=== PATIENT | male | born 1980 | race Caucasian/White ===

== ENCOUNTER 2023-09-06 15:56 | Emergency (ER) | payer BC ==
--- OUTSIDE RECORDS SUMMARY | 2023-09-06 16:01 | XMS REPORT | Continuity of Care Document ---
:1980 Author Organization [facility] t Address [address] [facility] [address] [place] [address] Care Team Providers Name Role Phone Asked, No Pcp Primary Care Physician Unavailable Lane Evans Attending Clinician LANE EVANS Attending Clinician Unavailable Jacky To Attending Clinician JACKY TO Attending Clinician Unavailable MD JULIO RODRIGUEZ Attending Clinician Unavailable JULIO RODRIGUEZ Attending Clinician Unavailable Hakeem Erickson Attending Clinician MD JULIO RODRIGUEZ Admitting Clinician Unavailable Problems Condition Condition Condition Status Onset Resolution Last Treating Co mments Source Name Details Category Date Date Treatment Clinician Date CP CP Active Diagnosis Active 2022-07-08 Memoria 07-07 16:35:[address] [place] [address] 00:00: Wesly Bonilla 00 RIB RIB Diagnosis Active 2021-01-31 Mem oria PAIN/DIFFI PAIN/DIFFI 01-31 18:00:00 l CULTY CULTY 00:00: Chad BREATHING BREATHING 00 Active 01/31/2021 [facility] CHEST PAIN CHEST Diagnosis Active 2019-02-07 Memoria PAIN 02-07 12:56:00 l Active 00:00: Chad 02/07/2019 [facility] History of Past Illness Condition Condition Condition Status Onset Resolution Last Treating Co mments Source Name Details Category Date Date Treatment Clinician Date Contusion Contusion Problem 2021-02-02 2021-02-02 Memoria of of 01-31 22:56:09 22:56:09 l unspecifie unspecifie 17:00: He rmann d front d front 00 wall of wall of thorax, thorax, initial initial encounter encounter 01/31/2021 02/02/2021 [facility] Umbilical Problem 2021-02-02 2021-02-02 Memoria hernia Umbilical 01-31 22:56:09 22:56:09 l without hernia 17:00: Chad obstructio without 00 n or obstructio gangrene n or gangrene 01/31/2021 02/02/2021 [facility] Fatty Fatty Problem 2021-02-02 2021-02-02 M emoria (change (change 01-31 22:56:09 22:56:09 l of) liver, of) liver, 17:00: He rmann not not 00 elsewhere elsewhere classified classified 01/31/2021 [facility] Other Other Problem 2021-02-02 2021-02-02 M emoria chest pain chest pain 01-31 22:56:09 22:56:09 l 01/31/2021 17:00: Wesly shukla 02/02/2021 00 [facility] Palpitatio Palpitati Problem 2019-02-09 2019-02-09 Memoria ns ons 02-07 21:57:54 21:57:54 l 02/07/2019 05:00: Wesly shukla 02/09/2019 00 [facility] Dizziness Dizziness Problem 2019-02-09 2019-02-09 Memoria and and 02-07 21:57:54 21:57:54 l giddiness giddiness 05:00: Virginia collins 02/07/2019 00 02/09/2019 [facility] Allergies, Adverse Reactions, Alerts Allergy Allergy Status Severity Reaction(s) Onset Inactive Treating Comm ents Source Name Type Date Date Clinician José Miguel Stock Active Hives [facility] to [facility] adverse 00:00: Hospita reaction 00 l s to drug codeine codeine Active [facility]oria l [place] Social History Social Habit Start Date Stop Date Quantity Comments Source History SDOH [facility] Alcohol Frequency Hospita l History SDOH [facility] Alcohol Std Drinks Hospit al History SDOH [facility] B[facility] Sexual orientation [facility] Social History 2022-07-08 2022-07-[address] [facility] ermann 00:04:28 00:04:28 Tobacco use and 2020-04-26 2020-04-26 Smokeless tobacco [facility] exposure 00:00:00 00:00:00 non-user Hospital Alcohol intake 2020-04-26 2020-04-26 Current drinker of [facility] 00:00:00 00:00:00 alcohol (finding) Hospita l History of Social 2020-04-26 2020-04-[address] function 00:00:00 00:00:00 Hospital Alcohol Comment 2020-04-26 2020-04-[address] 00:00:00 00:00:00 Hospital Sex Assigned At [birth year] [facility] 00:00:00 00:00:00 Hospital Smoking Status Start Date Stop Date Source Never smoked tobacco [facility] Medications Ordered Filled Start Stop Current Ordering Indication Dosage Frequency Signature Comments Components Source Medication Medication Date Date Medication? Clinician (SIG) Name Name hydrOXYzine Yes 25 mg = 1 M emoria hydrochlori 8-29 tab, PO, l de 25 mg 02:13: QID, PRN Anupama nn oral tablet 00 Anxiety, X 5 day, # 20 tab, 0 Refill(s), Pharmacy: [facility][id number], 187.96, cm, 07/07/22 18:33:00 CDT, Height, 100, kg, 07/07/22 18:33:00 CDT, Weight Ativan No Notes: Memoria 8-29 (Same as: l 01:43: Ativan) potassium No /= 14 Memoria chloride 8-29 Pakistani, l 00:51: may dissolve each 20 mEq tablet in 4 oz of water. Allow about 2 minutes for the tablets to disintegra te. Stir before giving to prepare slurry and administer . Please exclude patient's with feeding tube less than 14 Pakistani (Darnell J-tube, etc) and pediatric and patients. morphine 2021-0 No 4 mg, Memoria Sulfate 07-07 Route: l 23:27: IVP, ONCE, Dosing Weight 92.818, kg, Priority: STAT, Start date: 07/07/22 18:27:00 CDT, Stop date: 07/07/22 18:27:00 CDT Zofran 0 No 4 mg, Memoria 07-07 Route: l 23:27: IVP, Drug form: INJ, ONCE, Dosing Weight 92.818, kg, Priority: STAT, Start date: 07/07/22 18:27:00 CDT, Stop date: 07/07/22 18:27:00 CDT Famotidine Yes 20 mg = 1 Me moria 20 MG Oral 3-25 tab, PO, l Tablet 00:51: BID, # 28 Wesly n 00 tab, 0 Refill(s), Pharmacy: [facility] #[id number], 190.5, cm, 01/31/21 16:32:00 CDT, Height, 92.818, kg, 01/31/21 16:32:00 CDT, Weight ibuprofen 0 Yes 600 mg = 1 Me moria 600 mg oral 3-25 tab, PO, l tablet 00:51: Q6H, PRN 00 Pain or Fever, Take with food, X 5 day, # 20 tab, 0 Refill(s), Pharmacy: [facility] #[id number], 190.5, cm, 01/31/21 16:32:00 CDT, Height, 92.818, kg, 01/31/21 16:32:00 CDT, Weight Omnipaque 0 No Notes: Memori a 350 3-24 (Same l 22:26: as:Omnipaq ue 350). WASTE: F/P - Black; E - Municipal Trash Bin No known No No known Metho di medications 6-[address] 15:37: s Hospita 04 l No known 2019- No No known Metho di medications 6-[address] 15:37: s Hospita 04 l Sodium 2018- No 1,000 mL, Memori a Chloride 3-31 Infuse l 0.9% 18:08: Over: 1 Chad (Bolus) IV 00 hr, Route: IV, ONCE, Priority: STAT, Dosing Weight 100.909 kg, Start date: 02/07/19 13:08:00 CDT, Stop date: 02/07/19 13:08:00 CDT Vital Signs Vital Name Observation Time Observation Value Comments Source Respitory Rate 2022-07-08 02:20:00 Memori al Chad Systolic (mm Hg) 2022-07-08 02:20:00 Jose rial [place] Diastolic (mm Hg) 2022-07-08 02:20:00 Mem orial Chad Respitory Rate 2022-07-08 01:57:00 Memori al [place] Systolic (mm Hg) 2022-07-08 01:57:00 Jose rial Chad Diastolic (mm Hg) 2022-07-08 01:57:00 Mem orial Chad Respitory Rate 2022-07-08 01:36:00 Memori al Chad Systolic (mm Hg) 2022-07-08 01:36:00 Jose rial Chad Diastolic (mm Hg) 2022-07-08 01:36:00 Mem orial Chad Height 2022-07-07 23:33:00 187.96 cm [facility] Chad BMI Calculated 2022-07-07 23:33:00 Memori al Chad Weight 2022-07-07 23:33:00 [facility] Chad Heart Rate 2022-07-07 23:33:00 [facility] Temperature Oral (F) 2022-07-07 23:33:00 98.2 F [facility] Temperature Oral (F) 2021-02-01 01:27:00 98.9 F [facility] Heart Rate 2021-02-01 01:27:00 [facility] Respitory Rate 2021-02-01 01:27:00 Memori al [place] Systolic (mm Hg) 2021-02-01 01:27:00 Jose rial [place] Diastolic (mm Hg) 2021-02-01 01:27:00 Mem orial [place] Height 2021-01-31 21:32:00 190.5 cm [facility] Chad BMI Calculated 2021-01-31 21:32:00 Memori al [place] Weight 2021-01-31 21:32:00 [facility] Systolic (mm Hg) 2021-01-31 21:32:00 Jose rial Chad Diastolic (mm Hg) 2021-01-31 21:32:00 Mem orial [place] Heart Rate 2021-01-31 21:32:00 [facility] Respitory Rate 2021-01-31 21:32:00 Memori al [place] Temperature Oral (F) 2021-01-31 21:32:00 99.0 F [facility] Temperature Oral (F) 2019-02-07 20:00:00 98.1 F [facility] Systolic (mm Hg) 2019-02-07 20:00:00 Jose rial [place] Diastolic (mm Hg) 2019-02-07 20:00:00 Mem orial Chad Systolic (mm Hg) 2019-02-07 19:30:00 Jose rial Chad Diastolic (mm Hg) 2019-02-07 19:30:00 Mem orial Chad Systolic (mm Hg) 2019-02-07 18:22:00 Jose rial Chad Diastolic (mm Hg) 2019-02-07 18:22:00 Mem orial Chad Height 2019-02-07 17:35:00 193.04 cm [facility] Chad BMI Calculated 2019-02-07 17:35:00 Memori al [place] Respitory Rate 2019-02-07 17:35:00 Memori al [place] Heart Rate 2019-02-07 17:35:00 [facility] Temperature Oral (F) 2019-02-07 17:35:00 98.8 F [facility] Weight 2019-02-07 17:35:00 [facility] Chad Procedures This patient has no known procedures. Plan of Care Planned Activity Planned Date Details Comments Source Future Scheduled 2023-09-03 [facility]INE [facility] 19:16:59 (#1) [code = COVID-19 VACCINE (#1)] Future Scheduled 2023-09-03 INFLUENZA VACCINE [facility] Test 19:16:59 (#1) [code = INFLUENZA VACCINE (#1)] Future Scheduled 2021-09-19 [facility] ([facility] [code = COVID-19 VACCINE (1)] Future Scheduled 2021-09-19 [facility] 07:44:39 screening (procedure) [code = 866268704] Future Scheduled 2021-09-19 [facility]ZA [facility]ACCINE [facility] 07:44:39 [code = INFLUENZA VACCINE] Future Scheduled 2021-09-19 COVID-[address] [facility] Test 07:44:39 (1) [code = COVID-19 VACCINE (1)] Future Scheduled 2021-09-19 [facility] Test 07:44:39 screening (procedure) [code = 090011480] Future Scheduled 2021-09-19 [facility]ENZA [facility]ACCINE [facility] Test 07:44:39 [code = INFLUENZA VACCINE] Encounters Start End Encounter Admission Attending Care Care Encounter Source Date/Time Date/Time Type Type Clinicians Facility Department ID 2022-07-07 2022-07-08 Emergency [facility] [id number] Memoria 23:22:21 02:30:00 bina Bonilla [address] [place] [address] 2022-07-07 2022-07-07 Outpatient MARLEN Evans [facility] [id number] 18:22:21 21:30:00 Abdiwahab 02 Fatima 2022-07-07 2022-07-07 [address] [facility] 18:22:00 21:30:00 ABDIWAHAB 2021-01-31 2021-02-01 Emergency [facility] [id number] Memoria 21:29:54 01:30:00 bina Bonilla [address] [place] [address] 2021-01-31 2021-01-31 Outpatient YESSENIA To 9 [id number] 16:29:54 20:30:00 Jacky Beard 2021-01-31 2021-01-31 Emergency E JIMENA TO KM [id number] Memoria 16:29:00 20:30:00 [facility] 2020-04-26 2020-04-26 Emergency [facility] [id number] [address] [place] 00:00:00 00:00:00 JULIO Hammond0 [facility] 2019-02-07 2019-02-07 Emergency nullFlavo [facility] [id number] Memoria 17:30:00 20:22:00 r Chad 00 l [facility] 2019-02-07 2019-02-07 Outpatient Hakeem Erickson [facility] [id number] 12:30:00 15:22:00 Jax Will 00 Results Test Description Test Time Test Comments Results Result Comments Source CARDIAC ENZYMES 2022-07-08 00:32:00 Test Item Value Reference Range Interpretation Comme nts HS Troponin I 1 Hr (test code = HS Troponin I 1 Hr) no gt [facility] [id number] 00:32:00 Test Item Value Reference Range Interpretation Comments HS Troponin I 0 to 1 Hour Delta (test no gt code = HS Troponin I 0 to 1 Hour Delta) [facility] [id number] 00:32:00 Test Item Value Reference Range Interpretation Comments Total CK (test code = Total CK) 133 12-191 [facility] [id number] 00:32:00 Test Item Value Reference Range Interpretation Comments CK MB (test code = CK MB) <1 ng/mL 0.5-3.6 [facility] [id number] 00:32:00 Test Item Value Reference Range Interpretation Comments CK MB Index (test code See Note 2(07/07/22 <=2.5 = CK MB Index) 7:32 PM) [facility] MarcosTtkhitnVQCQSVFGON0144-51-03 23:29:00 Test Item Value Reference Range Interpretation Comments Lymphocytes # (test code = Lymphocytes 2.2 1.0-5.5 #) [facility]oayoxtOZLKSGULHF9882-74-61 23:29:00 Test Item Value Reference Range Interpretation Comments Monocytes # (test code = Monocytes #) 0.9 <=0.8 [facility] MarcosRpnurbfTCSJLBXWVI9247-89-90 23:29:00 Test Item Value Reference Range Interpretation Comments Eosinophils # (test code = Eosinophils 0.1 <=0.5 #) [facility] MarcosWvjjwboNEJNVBMUHU6450-49-00 23:29:00 Test Item Value Reference Range Interpretation Comments Basophils # (test code = Basophils #) 0.1 <=0.2 [facility] DigitalB[facility] [id number] 23:29:00 Test Item Value Reference Range Interpretation Comments HS Troponin I Baseline (test code = HS no gt Troponin I Baseline) [facility]cos[facility] DigitalCHEM [id number] 23:29:00 Test Item Value Reference Range Interpretation Comments Glucose Lvl (test code = Glucose Lvl) 111 70-99 [place] 269822-08-28 23:29:00 Test Item Value Reference Range Interpretation Comments BUN (test code = BUN) 14 7-22 [place] 269822-08-28 23:29:00 Test Item Value Reference Range Interpretation Comments Creatinine Lvl (test code = Creatinine 0.93 0.50-1.40 Lvl) [place] 269822-08-28 23:29:00 Test Item Value Reference Range Interpretation Comments Sodium Lvl (test code = Sodium Lvl) 137 135-145 [place] 269822-08-28 23:29:00 Test Item Value Reference Range Interpretation Comments Potassium Lvl (test code = Potassium 3.3 3.5-5.1 Lvl) [place] 269822-08-28 23:29:00 Test Item Value Reference Range Interpretation Comments Chloride Lvl (test code = Chloride Lvl) 105 95-109 [place] 269822-08-28 23:29:00 Test Item Value Reference Range Interpretation Comments CO2 (test code = CO2) 23 24-32 [place] 269822-08-28 23:29:00 Test Item Value Reference Range Interpretation Comments Calcium Lvl (test code = Calcium Lvl) 9.0 8.5-10.5 [facility]2022-08-28 23:29:00 Test Item Value Reference Range Interpretation Comments Total Protein (test code = Total 7.7 6.4-8.4 Protein) [place] 269822-08-28 23:29:00 Test Item Value Reference Range Interpretation Comments Albumin Lvl (test code = Albumin Lvl) 4.1 3.5-5.0 [place] 269822-08-28 23:29:00 Test Item Value Reference Range Interpretation Comments ALT (test code = ALT) 48 <=65 [place] 269822-08-28 23:29:00 Test Item Value Reference Range Interpretation Comments AST (test code = AST) 18 <=37 [place] 269822-08-28 23:29:00 Test Item Value Reference Range Interpretation Comments Alk Phos (test code = Alk Phos) 72 39-136 [place] 269822-08-28 23:29:00 Test Item Value Reference Range Interpretation Comments Bili Total (test code = Bili Total) 0.5 0.2-1.3 [place] 269822-08-28 23:29:00 Test Item Value Reference Range Interpretation Comments AGAP (test code = AGAP) 12.3 10.0-20.0 [facility]2022-08-28 23:29:00 Test Item Value Reference Range Interpretation Comments B/C Ratio (test code = B/C Ratio) 15 1 6-25 [place] 269822-08-28 23:29:00 Test Item Value Reference Range Interpretation Comments Globulin (test code = Globulin) 3.6 2.7-4.2 [place] 269822-08-28 23:29:00 Test Item Value Reference Range Interpretation Comments A/G Ratio (test code = A/G Ratio) 1.1 1 0.7-1.6 [place] 269822-08-28 23:29:00 Test Item Value Reference Range Interpretation Comments eGFR (test code = eGFR) 106 [place] 325932-08-28 23:29:00 Test Item Value Reference Range Interpretation Comments WBC (test code = WBC) 6.9 3.7-10.4 [place] 325932-08-28 23:29:00 Test Item Value Reference Range Interpretation Comments RBC (test code = RBC) 4.33 4.70-6.10 [place] 325932-08-28 23:29:00 Test Item Value Reference Range Interpretation Comments Hgb (test code = Hgb) 14.4 14.0-18.0 [place] 325932-08-28 23:29:00 Test Item Value Reference Range Interpretation Comments Hct (test code = Hct) 41.2 42.0-54.0 [place] 227[address]-08-28 23:29:00 Test Item Value Reference Range Interpretation Comments MCV (test code = MCV) 95.2 80.0-94.0 [place] 325932-08-28 23:29:00 Test Item Value Reference Range Interpretation Comments MCH (test code = MCH) 33.1 pg 27.0-31.0 [place] 325932-08-28 23:29:00 Test Item Value Reference Range Interpretation Comments MCHC (test code = MCHC) 34.8 32.0-36.0 [facility]ExiyhfiORZRYTANQF6522-39-39 23:29:00 Test Item Value Reference Range Interpretation Comments RDW (test code = RDW) 12.7 11.5-14.5 [facility] CenterKgatenpVVDSCUPNOZ5317-23-65 23:29:00 Test Item Value Reference Range Interpretation Comments Platelet (test code = Platelet) 243 133-450 [facility] CenterJdfhzaaWPARREFIMR7617-29-63 23:29:00 Test Item Value Reference Range Interpretation Comments MPV (test code = MPV) 8.7 7.4-10.4 [facility] CenterHnvcjmqKYDDJGBSZR7305-49-92 23:29:00 Test Item Value Reference Range Interpretation Comments PT (test code = PT) 12.5 s 12.0-14.7 [facility] CenterBxdokwvYQIBFQVPOC0398-46-35 23:29:00 Test Item Value Reference Range Interpretation Comments INR (test code = INR) 0.94 1 0.85-1.17 [facility] CenterOqtywdrHHYEEIHRZO9087-20-94 23:29:00 Test Item Value Reference Range Interpretation Comments D-Dimer (test code = D-Dimer) no gt [facility] CenterKfzcxqiWNZHDBQDYZ2320-95-03 23:29:00 Test Item Value Reference Range Interpretation Comments Segs (test code = Segs) 53.3 45.0-75.0 [facility] CenterFrabblnPSRDHFCYXL2745-25-49 23:29:00 Test Item Value Reference Range Interpretation Comments Lymphocytes (test code = Lymphocytes) 32.0 20.0-40.0 [facility] CenterMuynonhNFQTOVOOUE4993-67-94 23:29:00 Test Item Value Reference Range Interpretation Comments Monocytes (test code = Monocytes) 12.8 2.0-12.0 [facility] CenterWtsoldjMDJOYUWBEN7141-26-57 23:29:00 Test Item Value Reference Range Interpretation Comments Eosinophils (test code = Eosinophils) 1.1 <=4.0 [facility] CenterWtvluyqQYERVZTKGZ7711-53-46 23:29:00 Test Item Value Reference Range Interpretation Comments Basophils (test code = Basophils) 0.8 <=1.0 [facility] CenterLvkyeqbFKBZDHQZJB6186-12-60 23:29:00 Test Item Value Reference Range Interpretation Comments Neutrophils # (test code = Neutrophils 3.7 1.5-8.1 #) [place] 325931-03-24 21:43:00 Test Item Value Reference Range Interpretation Comments MCHC (test code = MCHC) 34.5 32.0-36.0 [place] 325931-03-24 21:43:00 Test Item Value Reference Range Interpretation Comments RDW (test code = RDW) 12.6 11.5-14.5 [place] 325931-03-24 21:43:00 Test Item Value Reference Range Interpretation Comments Platelet (test code = Platelet) 267 133-450 [place] 325931-03-24 21:43:00 Test Item Value Reference Range Interpretation Comments MPV (test code = MPV) 8.7 7.4-10.4 [place] 325931-03-24 21:43:00 Test Item Value Reference Range Interpretation Comments PT (test code = PT) 12.6 s 12.0-14.7 [place] 325931-03-24 21:43:00 Test Item Value Reference Range Interpretation Comments INR (test code = INR) 0.95 1 0.85-1.17 [place] 325931-03-24 21:43:00 Test Item Value Reference Range Interpretation Comments PTT (test code = PTT) 25.6 s 22.9-35.8 [place] 325931-03-24 21:43:00 Test Item Value Reference Range Interpretation Comments Segs (test code = Segs) 57.8 45.0-75.0 [place] 325931-03-24 21:43:00 Test Item Value Reference Range Interpretation Comments Lymphocytes (test code = Lymphocytes) 29.2 20.0-40.0 [place] 325931-03-24 21:43:00 Test Item Value Reference Range Interpretation Comments Monocytes (test code = Monocytes) 9.7 2.0-12.0 [place] [address]-03-24 21:43:00 Test Item Value Reference Range Interpretation Comments Eosinophils (test code = Eosinophils) 2.2 <=4.0 [place] [address]-03-24 21:43:00 Test Item Value Reference Range Interpretation Comments Basophils (test code = Basophils) 1.1 <=1.0 [place] 325931-03-24 21:43:00 Test Item Value Reference Range Interpretation Comments Neutrophils # (test code = Neutrophils 4.6 1.5-8.1 #) [place] 325931-03-24 21:43:00 Test Item Value Reference Range Interpretation Comments Lymphocytes # (test code = Lymphocytes 2.3 1.0-5.5 #) [place] 325931-03-24 21:43:00 Test Item Value Reference Range Interpretation Comments Monocytes # (test code = Monocytes #) 0.8 <=0.8 [place] [address]-03-24 21:43:00 Test Item Value Reference Range Interpretation Comments Eosinophils # (test code = Eosinophils 0.2 <=0.5 #) [place] 325931-03-24 21:43:00 Test Item Value Reference Range Interpretation Comments Basophils # (test code = Basophils #) 0.1 <=0.2 [place] 269821-03-24 21:43:00 Test Item Value Reference Range Interpretation Comments Glucose Lvl (test code = Glucose Lvl) 131 70-99 [place] 269821-03-24 21:43:00 Test Item Value Reference Range Interpretation Comments BUN (test code = BUN) 12 7-22 [place] 269821-03-24 21:43:00 Test Item Value Reference Range Interpretation Comments Creatinine Lvl (test code = Creatinine 0.92 0.50-1.40 Lvl) [place] 269821-03-24 21:43:00 Test Item Value Reference Range Interpretation Comments Sodium Lvl (test code = Sodium Lvl) 139 135-145 [place] 269821-03-24 21:43:00 Test Item Value Reference Range Interpretation Comments Potassium Lvl (test code = Potassium 3.6 3.5-5.1 Lvl) [place] 269821-03-24 21:43:00 Test Item Value Reference Range Interpretation Comments Chloride Lvl (test code = Chloride Lvl) 106 95-109 [place] 269821-03-24 21:43:00 Test Item Value Reference Range Interpretation Comments CO2 (test code = CO2) 26 24-32 [place] 269821-03-24 21:43:00 Test Item Value Reference Range Interpretation Comments Calcium Lvl (test code = Calcium Lvl) 9.7 8.5-10.5 [place] 269821-03-24 21:43:00 Test Item Value Reference Range Interpretation Comments Total Protein (test code = Total 8.3 6.4-8.4 Protein) [place] 269821-03-24 21:43:00 Test Item Value Reference Range Interpretation Comments Albumin Lvl (test code = Albumin Lvl) 4.1 3.5-5.0 [place] 269821-03-24 21:43:00 Test Item Value Reference Range Interpretation Comments ALT (test code = ALT) 38 <=65 [place] 269821-03-24 21:43:00 Test Item Value Reference Range Interpretation Comments AST (test code = AST) 28 <=37 [place] 269821-03-24 21:43:00 Test Item Value Reference Range Interpretation Comments Alk Phos (test code = Alk Phos) 113 39-136 [place] 269821-03-24 21:43:00 Test Item Value Reference Range Interpretation Comments Bili Total (test code = Bili Total) 1.2 0.2-1.3 [place] 269821-03-24 21:43:00 Test Item Value Reference Range Interpretation Comments AGAP (test code = AGAP) 10.6 10.0-20.0 [place] 269821-03-24 21:43:00 Test Item Value Reference Range Interpretation Comments B/C Ratio (test code = B/C Ratio) 13 1 6-25 [place] 269821-03-24 21:43:00 Test Item Value Reference Range Interpretation Comments Globulin (test code = Globulin) 4.2 2.7-4.2 [place] 269821-03-24 21:43:00 Test Item Value Reference Range Interpretation Comments A/G Ratio (test code = A/G Ratio) 1.0 1 0.7-1.6 [place] 269821-03-24 21:43:00 Test Item Value Reference Range Interpretation Comments eGFR (test code = eGFR) 105 [place] 325931-03-24 21:43:00 Test Item Value Reference Range Interpretation Comments WBC (test code = WBC) 8.0 3.7-10.4 [place] 325931-03-24 21:43:00 Test Item Value Reference Range Interpretation Comments RBC (test code = RBC) 4.85 4.70-6.10 [facility]fh[facility]unoHOYKSSJNVS5469-96-26 21:43:00 Test Item Value Reference Range Interpretation Comments Hgb (test code = Hgb) 15.9 14.0-18.0 [facility]ax[facility]SS[facility]QKXMULT8997-21-14 21:43:00 Test Item Value Reference Range Interpretation Comments Hct (test code = Hct) 46.1 42.0-54.0 [facility] HospitalKxoupzwSAQHKVNIHR6676-75-10 21:43:00 Test Item Value Reference Range Interpretation Comments MCV (test code = MCV) 95.1 80.0-94.0 [id number] 21:43:00 Test Item Value Reference Range Interpretation Comments MCH (test code = MCH) 32.8 pg 27.0-31.0 [facility] coronavirus 2 RNA [Presence] in Respiratory specimen by MAURISIO with probe [id number] 03:04:28 Test Item Value Reference Range Interpretation Comments SARS coronavirus 2 RNA [Presence] in Detected Not-Detected Respiratory specimen by MAURISIO with probe detection (test code = 75883-5) [id number] 18:17:00 Test Item Value Reference Range Interpretation Comments Troponin-I (test code = Troponin-I) no gt <=0.40 [facility] [id number] 18:17:00 Test Item Value Reference Range Interpretation Comments Total CK (test code = Total CK) 259 12-191 [facility] [id number] 18:17:00 Test Item Value Reference Range Interpretation Comments Magnesium Lvl (test code = Magnesium 1.8 1.8-2.4 Lvl) [facility] [id number] 18:17:00 Test Item Value Reference Range Interpretation Comments Calcium Lvl (test code = Calcium Lvl) 9.1 8.5-10.5 [facility] [id number] 18:17:00 Test Item Value Reference Range Interpretation Comments Albumin Lvl (test code = Albumin Lvl) 4.1 3.5-5.0 [facility] [id number] 18:17:00 Test Item Value Reference Range Interpretation Comments CO2 (test code = CO2) 23 32 [id number] 18:17:00 Test Item Value Reference Range Interpretation Comments BUN (test code = BUN) 7 7-22 [facility]2019-03-31 18:17:00 Test Item Value Reference Range Interpretation Comments Glucose Lvl (test code = Glucose Lvl) 92 70-99 [facility]2019-03-31 18:17:00 Test Item Value Reference Range Interpretation Comments eGFR (test code = eGFR) 101 [facility]2019-03-31 18:17:00 Test Item Value Reference Range Interpretation Comments Creatinine Lvl (test code = Creatinine 0.96 0.50-1.40 Lvl) [facility]2019-03-31 18:17:00 Test Item Value Reference Range Interpretation Comments ALT (test code = ALT) 39 <=65 [facility]2019-03-31 18:17:00 Test Item Value Reference Range Interpretation Comments AST (test code = AST) 17 <=37 [facility]2019-03-31 18:17:00 Test Item Value Reference Range Interpretation Comments Alk Phos (test code = Alk Phos) 83 39-136 [facility]2019-03-31 18:17:00 Test Item Value Reference Range Interpretation Comments Total Protein (test code = Total 8.0 6.4-8.4 Protein) [facility]2019-03-31 18:17:00 Test Item Value Reference Range Interpretation Comments Bili Total (test code = Bili Total) 0.5 0.2-1.3 [facility]2019-03-31 18:17:00 Test Item Value Reference Range Interpretation Comments Chloride Lvl (test code = Chloride Lvl) 108 95-109 [facility]2019-03-31 18:17:00 Test Item Value Reference Range Interpretation Comments Sodium Lvl (test code = Sodium Lvl) 141 135-145 [facility]2019-03-31 18:17:00 Test Item Value Reference Range Interpretation Comments Potassium Lvl (test code = Potassium 3.7 3.5-5.1 Lvl) [facility]2019-03-31 18:17:00 Test Item Value Reference Range Interpretation Comments AGAP (test code = AGAP) 13.7 10.0-20.0 [place] [id number] 18:17:00 Test Item Value Reference Range Interpretation Comments B/C Ratio (test code = B/C Ratio) 7 1 6-25 [facility]2019-03-31 18:17:00 Test Item Value Reference Range Interpretation Comments Globulin (test code = Globulin) 3.9 2.7-4.2 [facility]2019-03-31 18:17:00 Test Item Value Reference Range Interpretation Comments A/G Ratio (test code = A/G Ratio) 1.1 1 0.7-1.6 [id number] 18:17:00 Test Item Value Reference Range Interpretation Comments Hct (test code = Hct) 42.0 42.0-54.0 [facility] C[id number] 18:17:00 Test Item Value Reference Range Interpretation Comments WBC (test code = WBC) 5.0 3.7-10.4 [facility] [id number] 18:17:00 Test Item Value Reference Range Interpretation Comments RBC (test code = RBC) 4.46 4.70-6.10 [facility] Ce[id number] 18:17:00 Test Item Value Reference Range Interpretation Comments MCV (test code = MCV) 94.2 80.0-94.0 [facility] [id number] 18:17:00 Test Item Value Reference Range Interpretation Comments Hgb (test code = Hgb) 14.3 14.0-18.0 [facility] CenterQtwnxdtNOVAXMHCAO4021-05-13 18:17:00 Test Item Value Reference Range Interpretation Comments Platelet (test code = Platelet) 245 133-450 [facility] [id number] 18:17:00 Test Item Value Reference Range Interpretation Comments RDW (test code = RDW) 13.4 11.5-14.5 [facility] [id number] 18:17:00 Test Item Value Reference Range Interpretation Comments MCH (test code = MCH) 32.0 pg 27.0-31.0 [facility] C[id number] 18:17:00 Test Item Value Reference Range Interpretation Comments MCHC (test code = MCHC) 34.0 32.0-36.0 [facility] C[id number] 18:17:00 Test Item Value Reference Range Interpretation Comments MPV (test code = MPV) 9.5 7.4-10.4 [facility] [id number] 18:17:00 Test Item Value Reference Range Interpretation Comments Basophils # (test code = Basophils #) 0.1 <=0.2 [place] [id number] 18:17:00 Test Item Value Reference Range Interpretation Comments Eosinophils (test code = Eosinophils) 3.4 <=4.0 [facility] CenterRakbkmhZXRIPLPDCF4618-67-05 18:17:00 Test Item Value Reference Range Interpretation Comments Segs (test code = Segs) 45.4 45.0-75.0 [facility] CenterDirrkzbWJTEVAEMAG3720-26-06 18:17:00 Test Item Value Reference Range Interpretation Comments Monocytes (test code = Monocytes) 12.5 2.0-12.0 [facility] Cent[id number] 18:17:00 Test Item Value Reference Range Interpretation Comments Lymphocytes (test code = Lymphocytes) 37.7 20.0-40.0 [facility] [id number] 18:17:00 Test Item Value Reference Range Interpretation Comments Eosinophils # (test code = Eosinophils 0.2 <=0.5 #) [facility] CenterEfoqewpDHZTHVPTQV7105-04-96 18:17:00 Test Item Value Reference Range Interpretation Comments Neutrophils # (test code = Neutrophils 2.3 1.5-8.1 #) [facility] [id number] 18:17:00 Test Item Value Reference Range Interpretation Comments Monocytes # (test code = Monocytes #) 0.6 <=0.8 [place] [id number] 18:17:00 Test Item Value Reference Range Interpretation Comments Basophils (test code = Basophils) 1.0 <=1.0 [place] [id number] 18:17:00 Test Item Value Reference Range Interpretation Comments Lymphocytes # (test code = Lymphocytes 1.9 1.0-5.5 #) [facility]
--- NOTE | 2023-09-06 19:14 | EDPHYS ---
Physician Documentation [facility] Name: Derick Cherry Age: 43 yrs Sex: Male : 1980 Arrival Date: 09/06/2023 Time: 15:56 Bed IW10 Private MD: ED Physician David Greenwood HPI: 09/06 16:54 This 43 yrs old Male presents to ER via Ambulatory with complaints of Bloody ec2 Stools, Abdominal Pain - Low, Bladder Problem. 16:54 Patient arrives today due to concern for rectal bleeding. Patient reports that he has ec2 noted some blood in his stool. States that he has very irregular bowel movements and typically only goes twice a month. Patient reports no significant straining, does feel some abdominal discomfort occasionally. Patient reports no issues with p.o. intake, no nausea or vomiting. States that he had noted some blood in the stool and grew concerned as he is also having more frequent stools than typical for him. Patient reports no previous medical problems and no significant medication administration.. Historical: - Allergies: 16:42 No Known Allergies; hb - Home Meds: 16:42 None [Active]; hb - PMHx: 16:42 None; hb - PSHx: 16:42 None; hb - Immunization history:: Adult Immunizations up to date. - Social history:: Smoking status: Patient denies any tobacco usage or history of. ROS: 16:54 Constitutional: as per hpi ec2 Exam: 16:54 Constitutional: GEN: NAD Head: atraumatic Eyes: EOMI Ears: External ears are ec2 normal. CV: regular rate LUNGS: no respiratory distress ABD: non-distended, soft, nontender, no guarding, nonrigid : Blood present at the 6 o'clock position with no obvious hemorrhoid or fissure appreciated. Some skin breakdown also noted. SKIN: no evidence of rashes MSK: no evidence of trauma NEURO: moves all extremities equally Vital Signs: 16:37 BP 144 / 98; Pulse 92; Resp 16; Temp 98.3(TE); Pulse Ox 99% ; Weight 99.79 kg; Height 6 hb ft. 3 in. ; Pain 0/10; 16:37 Body Mass Index 27.50 (99.79 kg, 190.5 cm) hb 16:37 Pain Scale: Adult hb MDM: 16:16 Patient medically screened. ec2 16:54 ED course: Patient arrives today due to concern for rectal bleeding as well as ec2 increased stool. Examination remarkable for benign abdomen with reassuring vital signs. Will obtain lab work, CT abdomen pelvis and refurther assess the complaint. Currently considering diverticulosis, diverticulitis, lower suspicion for esophageal bleed given the patient's reassuring abdominal examination and lack of history for liver disease. . 19:10 Transition of care: After a detail discussion of the patient's case, care is ec2 transferred to Hilario Wan MD. 19:14 Data reviewed: vital signs. ED course: Patient eloped without discussion with me.. ec2 09/06 17:08 Order name: IV Saline Lock ec2 09/06 17:08 Order name: Labs collected and sent ec2 Administered Medications: No medications were administered Disposition Summary: 09/06/23 19:14 Eloped Notes: Disposition: after being seen by provider ec2 Reason: wait time ec2 Diagnosis - Bloody Diarrhea ec2 Signatures: Dispatcher [employer] Christina Acosta RN RN David Greenwood MD MD ec2 Corrections: (The following items were deleted from the chart) 19:13 19:13 Home ec2 ec2 19:13 19:13 Stable ec2 ec2 19:13 19:13 Bloody Stools ec2 ec2
--- NOTE | 2023-09-06 19:14 | ER ---
Nurse's Notes [facility] Name: Derick Cherry Age: 43 yrs Sex: Male : 1980 Arrival Date: 09/06/2023 Time: 15:56 Bed IW10 Private MD: Diagnosis: Bloody Diarrhea Presentation: 09/06 16:37 Chief complaint: Upper abdominal pain and blood in stool x 2 weeks. Vomit x 1 today. hb Coronavirus screen: At this time, the client does not indicate any symptoms associated with coronavirus-19. Ebola Screen: No symptoms or risks identified at this time. Initial Sepsis Screen: Does the patient meet any 2 criteria? HR > 90 bpm. No. Patient's initial sepsis screen is negative. Does the patient have a suspected source of infection? No. Patient's initial sepsis screen is negative. Risk Assessment: Do you want to hurt yourself or someone else? Patient reports no desire to harm self or others. Onset of symptoms was August 23, 2023. 16:37 Method Of Arrival: Ambulatory hb 16:37 Acuity: SHAN 3 hb Historical: - Allergies: 16:42 No Known Allergies; hb - Home Meds: 16:42 None [Active]; hb - PMHx: 16:42 None; hb - PSHx: 16:42 None; hb - Immunization history:: Adult Immunizations up to date. - Social history:: Smoking status: Patient denies any tobacco usage or history of. Vital Signs: 16:37 BP 144 / 98; Pulse 92; Resp 16; Temp 98.3(TE); Pulse Ox 99% ; Weight 99.79 kg; Height 6 hb ft. 3 in. ; Pain 0/10; 16:37 Body Mass Index 27.50 (99.79 kg, 190.5 cm) hb 16:37 Pain Scale: Adult hb ED Course: 16:00 Patient arrived in ED. mg5 16:16 David Greenwood MD is Attending Physician. ec2 16:42 Triage completed. hb 16:42 Arm band placed on. hb 19:05 Patient's name was called from ER lobby. No response. Unable to locate patient. Will cm10 disposition as left without being seen by a provider. Administered Medications: No medications were administered Outcome: 19:13 Discharge ordered by . ec2 19:25 Patient left the ED. cm10 Signatures: Christina Florian RN RN Lora Ball RN RN cm10 Maria Victoria Mcgee mg5 David Greenwood MD MD ec2
[2023-09-06 19:32] VITALS: BP 144/98; TEMP 98.3; O2SAT 99
== END 2023-09-06 19:25 | disposition left against medical advice (07) ==
LOC: ER 15:56
DX: K92.1 Melena (principal)
CPT/HCPCS: 99281

== ENCOUNTER 2023-09-08 08:15 | Emergency (ER) | payer BC ==
--- OUTSIDE RECORDS SUMMARY | 2023-09-08 08:20 | XMS REPORT | Continuity of Care Document ---
:1980 Author Organization [facility] t Address [address] [facility]. [address] [place] [address] Care Team Providers Name Role Phone Asked, [...] Diagnosis Active 2022-07-08 Memoria 07-07 16:35:00 l 2 Memorial 00:00: Wesly Bonilla 00 RIB RIB Diagnosis Active 2021-01-31 Mem oria PAIN/DIFFI PAIN/DIFFI 01-31 18:00:00 l CULTY CULTY 00:00: Chad BREATHING BREATHING 00 Active 01/31/2021 [facility] CHEST PAIN CHEST Diagnosis Active 2019-02-07 Memoria PAIN 02-07 12:56:00 l Active 00:00: Chad 02/07/[address] [facility] History of Past Illness Condition Condition Condition Status Onset Resolution Last Treating Co mments Source Name Details Category Date Date Treatment Clinician Date Fatty Fatty Problem 2021-02-02 2021-02-02 M emoria (change (change 01-31 22:56:09 22:56:09 l of) liver, of) liver, 17:00: He rmann not not 00 elsewhere elsewhere classified classified 02/02/2021 [facility] Other Other Problem 2021-02-02 2021-02-02 M emoria chest pain chest pain 01-31 22:56:09 22:56:09 l 17:00: Wesly n 1 00 02/02/2021 [facility] Contusion Contusion Problem 2021-02-02 2021-02-02 Memoria of of 01-31 22:56:09 22:56:09 l unspecifie unspecifie 17:00: He tonie d front d front 00 wall of wall of thorax, thorax, initial initial encounter encounter 01/31/2021 02/02/2021 [facility] Umbilical Problem 2021-02-02 2021-02-02 Memoria hernia Umbilical 01-31 22:56:09 22:56:09 l without hernia 17:00: Chad obstructio without 00 n or obstructio gangrene n or gangrene 01/31/2021 02/02/2021 [facility] Palpitatio Problem 2018-2019-02-09 2019-02-09 Memoria ns Palpitatio 02-07 21:57:54 21:57:54 l ns 05:00: Chad 02/07/2019 00 02/09/[address] [facility] Dizziness Dizziness Problem 2018-2019-02-09 2019-02-09 Memoria and and 02-07 21:57:54 21:57:54 l giddiness giddiness 05:00: Herm karina 02/07/2019 00 02/09/[address] [facility] Allergies, Adverse Reactions, Alerts Allergy Allergy Status Severity Reaction(s) Onset Inactive Treating Comm ents Source Name Type Date Date Clinician Codeine Propensi Active Hives 2020-0 Methodi ty to 6-[facility] adverse 00:00: Hospita reaction 00 l s to drug codeine codeine Active Sharmin mayi ColemanChad Social History Social Habit Start Date Stop Date Quantity Comments Source Sexual orientation [facility] SDOH [facility] Alcohol Frequency Hospita l History SDOH [facility] Alcohol Std Drinks Hospit al History SDOH [facility] Alcohol Binge Hospital Social History 2022-07-08 2022-07-08 [facility] amparo 00:04:28 00:04:28 Alcohol intake 2020-04-26 2020-04-26 Current drinker of [facility] 00:00:00 00:00:00 alcohol (finding) Hospita l History of Social 2020-04-26 2020-04-[address] function 00:00:00 00:00:00 Hospital Alcohol Comment 2020-04-26 2020-04-[address] 00:00:00 00:00:00 Hospital Tobacco use and 2020-04-26 2020-04-26 Smokeless tobacco [facility] exposure 00:00:00 00:00:00 non-user Hospital Sex Assigned At [birth year] [facility] 00:00:00 00:00:00 Hospital Smoking Status Start Date Stop Date Source Never smoked tobacco [facility] Medications Ordered Filled Start Stop Current Ordering Indication Dosage Frequency Signature Comments Components Source Medication Medication Date Date Medication? Clinician (SIG) Name Name hydrOXYzine Yes 25 mg = 1 M emoria hydrochlori 8-29 tab, PO, l de 25 mg 02:13: QID, PRN Anupama nn oral tablet 00 Anxiety, X 5 day, # 20 tab, 0 Refill(s), Pharmacy: [facility] #[id number], 187.96, cm, 07/07/22 18:33:00 CDT, Height, 100, kg, 07/07/22 18:33:00 CDT, Weight hydrOXYzine Yes 25 mg = 1 M emoria hydrochlori 8-29 tab, PO, l de 25 mg 02:13: QID, PRN Anupama nn oral tablet 00 Anxiety, X 5 day, # 20 tab, 0 Refill(s), Pharmacy: [facility]ORE #[id number], 187.96, cm, 07/07/22 18:33:00 CDT, Height, 100, kg, 07/07/22 18:33:00 CDT, Weight Ativan No Notes: Memoria 8-29 (Same as: l 01:43: Ativan) Ativan No Notes: Memoria 8-29 (Same as: l 01:43: Ativan) potassium No /= 14 Memoria chloride 8-29 [place], l 00:51: may dissolve each 20 mEq tablet in 4 oz of water. Allow about 2 minutes for the tablets to disintegra te. Stir before giving to prepare slurry and administer . Please exclude patient's with feeding tube less than 14 [place] (Dobhoff, J-tube, etc) and pediatric and patients. potassium 2021-0 No /= 14 Memoria chloride 8-29 [place], l 00:51: may dissolve each 20 mEq tablet in 4 oz of water. Allow about 2 minutes for the tablets to disintegra te. Stir before giving to prepare slurry and administer . Please exclude patient's with feeding tube less than 14 [place] (Dobhoff, J-tube, etc) and pediatric and patients. morphine 2021-0 No 4 mg, Memoria Sulfate 07-07 Route: l 23:27: IVP, ONCE, Dosing Weight 92.818, kg, Priority: STAT, Start date: 07/07/22 18:27:00 CDT, Stop date: 07/07/22 18:27:00 CDT Zofran 2021-0 No 4 mg, Memoria 07-07 Route: l 23:27: IVP, Drug form: INJ, ONCE, Dosing Weight 92.818, kg, Priority: STAT, Start date: 07/07/22 18:27:00 CDT, Stop date: 07/07/22 18:27:00 CDT morphine 2021-0 No 4 mg, Memoria Sulfate 07-07 Route: l 23:27: IVP, ONCE, Dosing Weight 92.818, kg, Priority: STAT, Start date: 07/07/22 18:27:00 CDT, Stop date: 07/07/22 18:27:00 CDT Zofran 2-0 No 4 mg, Memoria 07-07 Route: l 23:27: IVP, Drug [place] 00 form: INJ, ONCE, Dosing Weight 92.818, kg, Priority: STAT, Start date: 07/07/22 18:27:00 CDT, Stop date: 07/07/22 18:27:00 CDT Famotidine Yes 20 mg = 1 Me moria 20 MG Oral 3-25 tab, PO, l Tablet 00:51: BID, # 28 Wesly n 00 tab, 0 Refill(s), Pharmacy: [facility] #[id number], 190.5, cm, 01/31/21 16:32:00 CDT, Height, 92.818, kg, 01/31/21 16:32:00 CDT, Weight ibuprofen Yes 600 mg = 1 Me moria 600 mg oral 3-25 tab, PO, l tablet 00:51: Q6H, PRN Chad 00 Pain or Fever, Take with food, X 5 day, # 20 tab, 0 Refill(s), [id number], 190.5, cm, 01/31/21 16:32:00 CDT, Height, 92.818, kg, 01/31/21 16:32:00 CDT, Weight Famotidine Yes 20 mg = 1 Me moria 20 MG Oral 3-25 tab, PO, l Tablet 00:51: BID, # 28 Ewsly n 00 tab, 0 Refill(s), [id number], 190.5, cm, 01/31/21 16:32:00 CDT, Height, 92.818, kg, 01/31/21 16:32:00 CDT, Weight ibuprofen 0 Yes 600 mg = 1 Me moria 600 mg oral 3-25 tab, PO, l tablet 00:51: Q6H, PRN [place] 00 Pain or Fever, Take with food, X 5 day, # 20 tab, 0 Refill(s), [id number], 190.5, cm, 01/31/21 16:32:00 CDT, Height, 92.818, kg, 01/31/21 16:32:00 CDT, Weight Omnipaque 2021-0 No Notes: Memori a 350 3-24 (Same l 22:26: as:Omnipaq [place] 00 ue 350). WASTE: F/P - Black; E - Municipal Trash Bin Omnipaque No Notes: Memori a 350 3-24 (Same l 22:26: as:Omnipaq [place] 00 ue 350). WASTE: F/P - Black; E - Municipal Trash Bin No known 2019- No No known Metho di medications 6-[address] 15:37: s Hospita 04 l No known 2020-0 No No known Metho di medications 6-[address] 15:37: s Hospita 04 l Sodium 2019-0 No 1,000 mL, Memori a Chloride 3-31 Infuse l 0.9% 18:08: Over: 1 [place] (Bolus) IV 00 hr, Route: IV, ONCE, Priority: STAT, Dosing Weight 100.909 kg, Start date: 02/07/19 13:08:00 CDT, Stop date: 02/07/19 13:08:00 CDT Sodium 2019-0 No 1,000 mL, Memori a Chloride 3-31 Infuse l 0.9% 18:08: Over: 1 [place] (Bolus) IV 00 hr, Route: IV, ONCE, Priority: STAT, Dosing Weight 100.909 kg, Start date: 02/07/19 13:08:00 CDT, Stop date: 02/07/19 13:08:00 CDT Vital Signs Vital Name Observation Time Observation Value Comments Source Respitory Rate 2022-07-08 02:20:00 Memori al Chad Systolic (mm Hg) 2022-07-08 02:20:00 Jose rial [place] Diastolic (mm Hg) 2022-07-08 02:20:00 Mem orial [place] Respitory Rate 2022-07-08 01:57:00 Memori al Chad Systolic (mm Hg) 2022-07-08 01:57:00 Jose rial Chad Diastolic (mm Hg) 2022-07-08 01:57:00 Mem orial [place] Respitory Rate 2022-07-08 01:36:00 Memori al [place] Systolic (mm Hg) 2022-07-08 01:36:00 Jose rial [place] Diastolic (mm Hg) 2022-07-08 01:36:00 Mem orial [place] Height 2022-07-07 23:33:00 187.96 cm [facility] [place] BMI Calculated 2022-07-07 23:33:00 Memori al Chad Weight 2022-07-07 23:33:00 [facility] Chad Heart Rate 2022-07-07 23:33:00 [facility] Chad Temperature Oral (F) 2022-07-07 23:33:00 98.2 F [facility] [place] Temperature Oral (F) 2021-02-01 01:27:00 98.9 F [facility] [place] Heart Rate 2021-02-01 01:27:00 [facility] [place] Respitory Rate 2021-02-01 01:27:00 Memori al [place] Systolic (mm Hg) 2021-02-01 01:27:00 Jose rial [place] Diastolic (mm Hg) 2021-02-01 01:27:00 Mem orial Chad Height 2021-01-31 21:32:00 190.5 cm [facility] [place] BMI Calculated 2021-01-31 21:32:00 Memori al [place] Weight 2021-01-31 21:32:00 [facility] Chad Systolic (mm Hg) 2021-01-31 21:32:00 Jose rial [place] Diastolic (mm Hg) 2021-01-31 21:32:00 Mem orial Chad Heart Rate 2021-01-31 21:32:00 [facility] [place] Respitory Rate 2021-01-31 21:32:00 Memori al Chad Temperature Oral (F) 2021-01-31 21:32:00 99.0 F [facility] [place] Temperature Oral (F) 2019-02-07 20:00:00 98.1 F [facility] [place] Systolic (mm Hg) 2019-02-07 20:00:00 Jose rial Chad Diastolic (mm Hg) 2019-02-07 20:00:00 Mem orial Chad Systolic (mm Hg) 2019-02-07 19:30:00 Jose rial Chad Diastolic (mm Hg) 2019-02-07 19:30:00 Mem orial [place] Systolic (mm Hg) 2019-02-07 18:22:00 Jose rial [place] Diastolic (mm Hg) 2019-02-07 18:22:00 Mem orial [place] Height 2019-02-07 17:35:00 193.04 cm [facility] Chad BMI Calculated 2019-02-07 17:35:00 Memori al [place] Respitory Rate 2019-02-07 17:35:00 Memori al [place] Heart Rate 2019-02-07 17:35:00 [facility] [place] Temperature Oral (F) 2019-02-07 17:35:00 98.8 F [facility] [place] Weight 2019-02-07 17:35:00 [facility] Chad Procedures This patient has no known procedures. Plan of Care Planned Activity Planned Date Details Comments Source Future Scheduled 2023-09-03 COVID-19 VACCINE [facility] 19:16:59 (#1) [code = COVID-19 VACCINE (#1)] Future Scheduled 2023-09-03 INFLUENZA VACCINE [facility] Test 19:16:59 (#1) [code = INFLUENZA VACCINE (#1)] Future Scheduled 2023-09-03 COVID-19 VACCINE [facility] Test 19:16:59 (#1) [code = COVID-19 VACCINE (#1)] Future Scheduled 2023-09-03 INFLUENZA VACCINE [facility] Test 19:16:59 (#1) [code = INFLUENZA VACCINE (#1)] Future Scheduled 2021-09-19 COVID-19 VACCINE [facility] Test 07:44:39 (1) [code = COVID-19 VACCINE (1)] Future Scheduled 2021-09-19 [facility] Test 07:44:39 screening (procedure) [code = 391822196] Future Scheduled 2021-09-19 INFLUENZA VACCINE [facility] Test 07:44:39 [code = INFLUENZA VACCINE] Future Scheduled 2021-09-19 COVID-19 VACCINE [facility] Test 07:44:39 (1) [code = COVID-19 VACCINE (1)] Future Scheduled 2021-09-19 [facility] Test 07:44:39 screening (procedure) [code = 939046043] Future Scheduled 2021-09-19 INFLUENZA VACCINE [facility] Test 07:44:39 [code = INFLUENZA VACCINE] Encounters Start End Encounter Admission Attending Care Care Encounter Source Date/Time Date/Time Type Type Clinicians Facility Department ID 2022-07-07 2022-07-08 Emergency [facility] [id number] Memoria 23:22:21 02:30:00 r Chad 02 [facility] 2022-07-07 2022-07-08 Emergency [facility] [id number] Memoria 23:22:21 02:30:00 bina Bonilla 02 [facility] 2022-07-07 2022-07-07 Outpatient NathanMARLEN [email or web address] [id number] 18:22:21 21:30:00 Abdiwab 02 Fatima 2022-07-07 2022-07-07 Emergency E [address]AN [id number] [facility] 18:22[facility]00 [facility]30[facility] 2021-01-31 2021-02-01 Emergency [facility] [id number] Memoria 21:29:54 01:30:00 bina Bonilla [facility] 2021-01-31 2021-02-01 Emergency [facility] [id number] Memoria 21:29:54 01:30:00 bina Bonilla 01 [facility] 2021-01-31 2021-01-31 Outpatient Millie, Ivana 9 [id number] 375 16:29:54 20:30:00 Jacky Milo Chirag 2021-01-31 2021-01-31 Emergency E MILLIE, TAMELA KM [id number] Memoria 16:29:00 20:30:00 [facility] 2020-04-26 2020-04-26 Emergency DAIRY, [facility] [id number] [place] [address] 00:00:00 00:00:00 JULIO [address] 2019-02-07 2019-02-07 Emergency [facility] [id number] Memoria 17:30:00 20:22:00 bina Bonilla 00 [facility] 2019-02-07 2019-02-07 Emergency [facility] [id number] Memoria 17:30:00 20:22:00 bina Bonilla 00 [facility] 2019-02-07 2019-02-07 Outpatient Hakeem Erickson [facility] [id number] 12:30:00 15:22:00 Jax Solis 00 Results Test Description Test Time Test Comments Results Result Comments Source CARDIAC ENZYMES 2022-07-08 00:32:00 Test Item Value Reference Range Interpretation Comme nts HS Troponin I 1 Hr (test code = HS Troponin I 1 Hr) no gt [facility] HermannCARDIAC [id number] 00:32:00 Test Item Value Reference Range Interpretation Comments HS Troponin I 0 to 1 Hour Delta (test no gt code = HS Troponin I 0 to 1 Hour Delta) [facility] [id number] 00:32:00 Test Item Value Reference Range Interpretation Comments Total CK (test code = Total CK) 133 [facility] [id number] 00:32:00 Test Item Value Reference Range Interpretation Comments CK MB (test code = CK MB) <1 ng/mL 0.5-3.6 [facility] [id number] 00:32:00 Test Item Value Reference Range Interpretation Comments CK MB Index (test code See Note 2(07/07/22 <=2.5 = CK MB Index) 7:32 PM) [facility] [id number] 00:32:00 Test Item Value Reference Range Interpretation Comments HS Troponin I 1 Hr (test code = HS no gt Troponin I 1 Hr) [facility] [id number] 00:32:00 Test Item Value Reference Range Interpretation Comments HS Troponin I 0 to 1 Hour Delta (test no gt code = HS Troponin I 0 to 1 Hour Delta) [facility] [id number] 00:32:00 Test Item Value Reference Range Interpretation Comments Total CK (test code = Total CK) 133 [facility] [id number] 00:32:00 Test Item Value Reference Range Interpretation Comments CK MB (test code = CK MB) <1 ng/mL 0.5-3.6 [facility]annCARDIAC [id number] 00:32:00 Test Item Value Reference Range Interpretation Comments CK MB Index (test code See Note 2(07/07/22 <=2.5 = CK MB Index) 7:32 PM) [facility] HermannCARDIAC [id number] 23:29:00 Test Item Value Reference Range Interpretation Comments HS Troponin I Baseline (test code = HS no gt Troponin I Baseline) [place] [id number] 23:29:00 Test Item Value Reference Range Interpretation Comments Glucose Lvl (test code = Glucose Lvl) 111 70-99 [place] [id number] 23:29:00 Test Item Value Reference Range Interpretation Comments BUN (test code = BUN) 14 7-22 [place] [id number] 23:29:00 Test Item Value Reference Range Interpretation Comments Creatinine Lvl (test code = Creatinine 0.93 0.50-1.40 Lvl) [place] [id number] 23:29:00 Test Item Value Reference Range Interpretation Comments Sodium Lvl (test code = Sodium Lvl) 137 135-145 [place] [id number] 23:29:00 Test Item Value Reference Range Interpretation Comments Potassium Lvl (test code = Potassium 3.3 3.5-5.1 Lvl) [place] 940312-08-28 23:29:00 Test Item Value Reference Range Interpretation Comments Chloride Lvl (test code = Chloride Lvl) 105 95-109 [place] 940312-08-28 23:29:00 Test Item Value Reference Range Interpretation Comments CO2 (test code = CO2) 23 24-32 [place] 940312-08-28 23:29:00 Test Item Value Reference Range Interpretation Comments Calcium Lvl (test code = Calcium Lvl) 9.0 8.5-10.5 [place] 940312-08-28 23:29:00 Test Item Value Reference Range Interpretation Comments Total Protein (test code = Total 7.7 6.4-8.4 Protein) [place] 940312-08-28 23:29:00 Test Item Value Reference Range Interpretation Comments Albumin Lvl (test code = Albumin Lvl) 4.1 3.5-5.0 [place] 940312-08-28 23:29:00 Test Item Value Reference Range Interpretation Comments ALT (test code = ALT) 48 <=65 [place] 940312-08-28 23:29:00 Test Item Value Reference Range Interpretation Comments AST (test code = AST) 18 <=37 [place] 940312-08-28 23:29:00 Test Item Value Reference Range Interpretation Comments Alk Phos (test code = Alk Phos) 72 39-136 [facility]2022-08-28 23:29:00 Test Item Value Reference Range Interpretation Comments Bili Total (test code = Bili Total) 0.5 0.2-1.3 [facility]2022-08-28 23:29:00 Test Item Value Reference Range Interpretation Comments AGAP (test code = AGAP) 12.3 10.0-20.0 [facility]2022-08-28 23:29:00 Test Item Value Reference Range Interpretation Comments B/C Ratio (test code = B/C Ratio) 15 1 6-25 [place] 940312-08-28 23:29:00 Test Item Value Reference Range Interpretation Comments Globulin (test code = Globulin) 3.6 2.7-4.2 [facility]2022-08-28 23:29:00 Test Item Value Reference Range Interpretation Comments A/G Ratio (test code = A/G Ratio) 1.1 1 0.7-1.6 [place] 940312-08-28 23:29:00 Test Item Value Reference Range Interpretation Comments eGFR (test code = eGFR) 106 [id number] 23:29:00 Test Item Value Reference Range Interpretation Comments WBC (test code = WBC) 6.9 3.7-10.4 [facility] HospitalHfmbtnnTBYRSPBDUR2325-08-57 23:29:00 Test Item Value Reference Range Interpretation Comments RBC (test code = RBC) 4.33 4.70-6.10 [place] 059422-08-28 23:29:00 Test Item Value Reference Range Interpretation Comments Hgb (test code = Hgb) 14.4 14.0-18.0 [place] [id number] 23:29:00 Test Item Value Reference Range Interpretation Comments Hct (test code = Hct) 41.2 42.0-54.0 [place] [address]-08-28 23:29:00 Test Item Value Reference Range Interpretation Comments MCV (test code = MCV) 95.2 80.0-94.0 [place] [address]-08-28 23:29:00 Test Item Value Reference Range Interpretation Comments MCH (test code = MCH) 33.1 pg 27.0-31.0 [place] 98[address]-08-28 23:29:00 Test Item Value Reference Range Interpretation Comments MCHC (test code = MCHC) 34.8 32.0-36.0 [place] 059422-08-28 23:29:00 Test Item Value Reference Range Interpretation Comments RDW (test code = RDW) 12.7 11.5-14.5 [facility] [id number] 23:29:00 Test Item Value Reference Range Interpretation Comments Platelet (test code = Platelet) 243 133-450 [facility] HospitalJwujgoiJNROSJLPGF1431-10-86 23:29:00 Test Item Value Reference Range Interpretation Comments MPV (test code = MPV) 8.7 7.4-10.4 [place] 059422-08-28 23:29:00 Test Item Value Reference Range Interpretation Comments PT (test code = PT) 12.5 s 12.0-14.7 [facility] HospitalZfieexpYCFDQZTCLP5409-10-71 23:29:00 Test Item Value Reference Range Interpretation Comments INR (test code = INR) 0.94 1 0.85-1.17 [place] 059422-08-28 23:29:00 Test Item Value Reference Range Interpretation Comments D-Dimer (test code = D-Dimer) no gt [facility] Ho[id number] 23:29:00 Test Item Value Reference Range Interpretation Comments Segs (test code = Segs) 53.3 45.0-75.0 [facility] Ho[id number] 23:29:00 Test Item Value Reference Range Interpretation Comments Lymphocytes (test code = Lymphocytes) 32.0 20.0-40.0 [place] 059422-08-28 23:29:00 Test Item Value Reference Range Interpretation Comments Monocytes (test code = Monocytes) 12.8 2.0-12.0 [place] 059422-08-28 23:29:00 Test Item Value Reference Range Interpretation Comments Eosinophils (test code = Eosinophils) 1.1 <=4.0 [place] 059422-08-28 23:29:00 Test Item Value Reference Range Interpretation Comments Basophils (test code = Basophils) 0.8 <=1.0 [facility] Hospit[id number] 23:29:00 Test Item Value Reference Range Interpretation Comments Neutrophils # (test code = Neutrophils 3.7 1.5-8.1 #) [facility] CenterLtoheajJSUONOZQWM5282-08-31 23:29:00 Test Item Value Reference Range Interpretation Comments Lymphocytes # (test code = Lymphocytes 2.2 1.0-5.5 #) [facility]20[facility]37[facility]25 23:29:00 Test Item Value Reference Range Interpretation Comments Monocytes # (test code = Monocytes #) 0.9 <=0.8 [facility]PrfqpevXLHEUOUEUG4463-98-30 23:29:00 Test Item Value Reference Range Interpretation Comments Eosinophils # (test code = Eosinophils 0.1 <=0.5 #) [id number] 23:29:00 Test Item Value Reference Range Interpretation Comments Basophils # (test code = Basophils #) 0.1 <=0.[address] [facility] [address] [id number] 23:29:00 Test Item Value Reference Range Interpretation Comments HS Troponin I Baseline (test code = HS no gt Troponin I Baseline) [facility]2022-08-28 23:29:00 Test Item Value Reference Range Interpretation Comments Glucose Lvl (test code = Glucose Lvl) 111 70-99 [facility]2022-08-28 23:29:00 Test Item Value Reference Range Interpretation Comments BUN (test code = BUN) 14 7-22 [facility]2022-08-28 23:29:00 Test Item Value Reference Range Interpretation Comments Creatinine Lvl (test code = Creatinine 0.93 0.50-1.40 Lvl) [facility]2022-08-28 23:29:00 Test Item Value Reference Range Interpretation Comments Sodium Lvl (test code = Sodium Lvl) 137 135-145 [facility]2022-08-28 23:29:00 Test Item Value Reference Range Interpretation Comments Potassium Lvl (test code = Potassium 3.3 3.5-5.1 Lvl) [facility]2022-08-28 23:29:00 Test Item Value Reference Range Interpretation Comments Chloride Lvl (test code = Chloride Lvl) 105 95-109 [facility]2022-08-28 23:29:00 Test Item Value Reference Range Interpretation Comments CO2 (test code = CO2) 23 24-32 [facility]2022-08-28 23:29:00 Test Item Value Reference Range Interpretation Comments Calcium Lvl (test code = Calcium Lvl) 9.0 8.5-10.5 [place] 940312-08-28 23:29:00 Test Item Value Reference Range Interpretation Comments Total Protein (test code = Total 7.7 6.4-8.4 Protein) [place] 940312-08-28 23:29:00 Test Item Value Reference Range Interpretation Comments Albumin Lvl (test code = Albumin Lvl) 4.1 3.5-5.0 [place] 940312-08-28 23:29:00 Test Item Value Reference Range Interpretation Comments ALT (test code = ALT) 48 <=65 [place] 940312-08-28 23:29:00 Test Item Value Reference Range Interpretation Comments AST (test code = AST) 18 <=37 [place] 940312-08-28 23:29:00 Test Item Value Reference Range Interpretation Comments Alk Phos (test code = Alk Phos) 72 39-136 [place] 940312-08-28 23:29:00 Test Item Value Reference Range Interpretation Comments Bili Total (test code = Bili Total) 0.5 0.2-1.3 [place] 940312-08-28 23:29:00 Test Item Value Reference Range Interpretation Comments AGAP (test code = AGAP) 12.3 10.0-20.0 [place] 940312-08-28 23:29:00 Test Item Value Reference Range Interpretation Comments B/C Ratio (test code = B/C Ratio) 15 1 6-25 [place] 940312-08-28 23:29:00 Test Item Value Reference Range Interpretation Comments Globulin (test code = Globulin) 3.6 2.7-4.2 [place] 940312-08-28 23:29:00 Test Item Value Reference Range Interpretation Comments A/G Ratio (test code = A/G Ratio) 1.1 1 0.7-1.6 [place] 940312-08-28 23:29:00 Test Item Value Reference Range Interpretation Comments eGFR (test code = eGFR) 106 [place] 059422-08-28 23:29:00 Test Item Value Reference Range Interpretation Comments WBC (test code = WBC) 6.9 3.7-10.4 [facility]JdhmcnsSGIPQZIAWT4615-02-15 23:29:00 Test Item Value Reference Range Interpretation Comments RBC (test code = RBC) 4.33 4.70-6.10 [facility] HospitalHtxrfhnERMQJSRPIJ0289-69-61 23:29:00 Test Item Value Reference Range Interpretation Comments Hgb (test code = Hgb) 14.4 14.0-18.0 [facility] HospitalScysovcJODNWZLMUT6469-24-65 23:29:00 Test Item Value Reference Range Interpretation Comments Hct (test code = Hct) 41.2 42.0-54.0 [facility] HospitalMhrmybsEFSJGNQWND5472-37-46 23:29:00 Test Item Value Reference Range Interpretation Comments MCV (test code = MCV) 95.2 80.0-94.0 [facility] HospitalCozsoueYKVWKMVHAG2425-59-63 23:29:00 Test Item Value Reference Range Interpretation Comments MCH (test code = MCH) 33.1 pg 27.0-31.0 [facility] HospitalHzklyxkWQFYGROUTU2319-08-33 23:29:00 Test Item Value Reference Range Interpretation Comments MCHC (test code = MCHC) 34.8 32.0-36.0 [facility] HospitalSzoqlalNFXLZFTTBP8997-34-61 23:29:00 Test Item Value Reference Range Interpretation Comments RDW (test code = RDW) 12.7 11.5-14.5 [facility] HospitalPwqpxuwYOFQBHOOPP8810-02-51 23:29:00 Test Item Value Reference Range Interpretation Comments Platelet (test code = Platelet) 243 133-450 [facility] HospitalLoaxzjjFZFROWGIQN3679-94-04 23:29:00 Test Item Value Reference Range Interpretation Comments MPV (test code = MPV) 8.7 7.4-10.4 [facility] HospitalSadixyyKIJGZSFLHX9560-45-77 23:29:00 Test Item Value Reference Range Interpretation Comments PT (test code = PT) 12.5 s 12.0-14.7 [facility] HospitalApbkqjsOBJJHPYUQK3922-07-31 23:29:00 Test Item Value Reference Range Interpretation Comments INR (test code = INR) 0.94 1 0.85-1.17 [facility] HospitalMsumcryRMHLMQEUDX2249-35-03 23:29:00 Test Item Value Reference Range Interpretation Comments D-Dimer (test code = D-Dimer) no gt [facility] HospitalHvqxvleAPVBMQEKGJ5279-41-90 23:29:00 Test Item Value Reference Range Interpretation Comments Segs (test code = Segs) 53.3 45.0-75.0 [place] 059422-08-28 23:29:00 Test Item Value Reference Range Interpretation Comments Lymphocytes (test code = Lymphocytes) 32.0 20.0-40.0 [place] 059422-08-28 23:29:00 Test Item Value Reference Range Interpretation Comments Monocytes (test code = Monocytes) 12.8 2.0-12.0 [place] 059422-08-28 23:29:00 Test Item Value Reference Range Interpretation Comments Eosinophils (test code = Eosinophils) 1.1 <=4.0 [place] 059422-08-28 23:29:00 Test Item Value Reference Range Interpretation Comments Basophils (test code = Basophils) 0.8 <=1.0 [place] 059422-08-28 23:29:00 Test Item Value Reference Range Interpretation Comments Neutrophils # (test code = Neutrophils 3.7 1.5-8.1 #) [facility] HospitalOngvtotDEQWZWGPIU3133-07-00 23:29:00 Test Item Value Reference Range Interpretation Comments Lymphocytes # (test code = Lymphocytes 2.2 1.0-5.5 #) [facility] HospitalRynebljUQAWQNPKNV7263-00-37 23:29:00 Test Item Value Reference Range Interpretation Comments Monocytes # (test code = Monocytes #) 0.9 <=0.8 [place] 059422-08-28 23:29:00 Test Item Value Reference Range Interpretation Comments Eosinophils # (test code = Eosinophils 0.1 <=0.5 #) [facility] HospitalXrzhwkyIOLHNJWKFB9934-58-22 23:29:00 Test Item Value Reference Range Interpretation Comments Basophils # (test code = Basophils #) 0.1 <=0.2 [place] 059421-03-24 21:43:00 Test Item Value Reference Range Interpretation Comments Eosinophils (test code = Eosinophils) 2.[address] [facility] HospitalTvjiuifNZXNBKQDSG0710-26-23 21:43:00 Test Item Value Reference Range Interpretation Comments Basophils (test code = Basophils) 1.1 <=1.0 [place] 059421-03-24 21:43:00 Test Item Value Reference Range Interpretation Comments Neutrophils # (test code = Neutrophils 4.6 1.5-8.1 #) [place] 059421-03-24 21:43:00 Test Item Value Reference Range Interpretation Comments Lymphocytes # (test code = Lymphocytes 2.3 1.0-5.5 #) [place] 059421-03-24 21:43:00 Test Item Value Reference Range Interpretation Comments Monocytes # (test code = Monocytes #) 0.8 <=0.8 [place] 059421-03-24 21:43:00 Test Item Value Reference Range Interpretation Comments Eosinophils # (test code = Eosinophils 0.2 <=0.5 #) [place] 059421-03-24 21:43:00 Test Item Value Reference Range Interpretation Comments Basophils # (test code = Basophils #) 0.1 <=0.2 [place] 940311-03-24 21:43:00 Test Item Value Reference Range Interpretation Comments Glucose Lvl (test code = Glucose Lvl) 131 70-99 [place] 940311-03-24 21:43:00 Test Item Value Reference Range Interpretation Comments BUN (test code = BUN) 12 - [place] 940311-03-24 21:43:00 Test Item Value Reference Range Interpretation Comments Creatinine Lvl (test code = Creatinine 0.92 0.50-1.40 Lvl) [place] 940311-03-24 21:43:00 Test Item Value Reference Range Interpretation Comments Sodium Lvl (test code = Sodium Lvl) 139 135-145 [place] 940311-03-24 21:43:00 Test Item Value Reference Range Interpretation Comments Potassium Lvl (test code = Potassium 3.6 3.5-5.1 Lvl) [place] 940311-03-24 21:43:00 Test Item Value Reference Range Interpretation Comments Chloride Lvl (test code = Chloride Lvl) 106 95-109 [place] 940311-03-24 21:43:00 Test Item Value Reference Range Interpretation Comments CO2 (test code = CO2) 26 24-32 [place] 940311-03-24 21:43:00 Test Item Value Reference Range Interpretation Comments Calcium Lvl (test code = Calcium Lvl) 9.7 8.5-10.5 [place] 940311-03-24 21:43:00 Test Item Value Reference Range Interpretation Comments Total Protein (test code = Total 8.3 6.4-8.4 Protein) [facility]2021-03-24 21:43:00 Test Item Value Reference Range Interpretation Comments Albumin Lvl (test code = Albumin Lvl) 4.1 3.5-5.0 [place] 940311-03-24 21:43:00 Test Item Value Reference Range Interpretation Comments ALT (test code = ALT) 38 <=65 [place] 940311-03-24 21:43:00 Test Item Value Reference Range Interpretation Comments AST (test code = AST) 28 <=37 [place] 940311-03-24 21:43:00 Test Item Value Reference Range Interpretation Comments Alk Phos (test code = Alk Phos) 113 39-136 [facility]2021-03-24 21:43:00 Test Item Value Reference Range Interpretation Comments Bili Total (test code = Bili Total) 1.2 0.2-1.3 [place] 940311-03-24 21:43:00 Test Item Value Reference Range Interpretation Comments AGAP (test code = AGAP) 10.6 10.0-20.0 [place] 940311-03-24 21:43:00 Test Item Value Reference Range Interpretation Comments B/C Ratio (test code = B/C Ratio) 13 1 6-25 [place] 940311-03-24 21:43:00 Test Item Value Reference Range Interpretation Comments Globulin (test code = Globulin) 4.2 2.7-4.2 [place] 940311-03-24 21:43:00 Test Item Value Reference Range Interpretation Comments A/G Ratio (test code = A/G Ratio) 1.0 1 0.7-1.6 [place] 940311-03-24 21:43:00 Test Item Value Reference Range Interpretation Comments eGFR (test code = eGFR) 105 [facility] HospitalRfylwabKQVZSPAZYQ9772-57-24 21:43:00 Test Item Value Reference Range Interpretation Comments WBC (test code = WBC) 8.0 3.7-10.4 [place] 059421-03-24 21:43:00 Test Item Value Reference Range Interpretation Comments RBC (test code = RBC) 4.85 4.70-6.10 [place] 059421-03-24 21:43:00 Test Item Value Reference Range Interpretation Comments Hgb (test code = Hgb) 15.9 14.0-18.0 [place] 059421-03-24 21:43:00 Test Item Value Reference Range Interpretation Comments Hct (test code = Hct) 46.1 42.0-54.0 [place] 059421-03-24 21:43:00 Test Item Value Reference Range Interpretation Comments MCV (test code = MCV) 95.1 80.0-94.0 [place] 059421-03-24 21:43:00 Test Item Value Reference Range Interpretation Comments MCH (test code = MCH) 32.8 pg 27.0-31.0 [facility] HospitalNxidqxfLGARDTIEAS1922-29-35 21:43:00 Test Item Value Reference Range Interpretation Comments MCHC (test code = MCHC) 34.5 32.0-36.0 [place] 059421-03-24 21:43:00 Test Item Value Reference Range Interpretation Comments RDW (test code = RDW) 12.6 11.5-14.5 [facility] HospitalJxsgyzvVJYTGQNXSL4343-73-57 21:43:00 Test Item Value Reference Range Interpretation Comments MCHC (test code = MCHC) 34.5 32.0-36.0 [facility] HospitalXwenfbfXUFRUFCQJY2153-32-45 21:43:00 Test Item Value Reference Range Interpretation Comments RDW (test code = RDW) 12.6 11.5-14.5 [place] 059421-03-24 21:43:00 Test Item Value Reference Range Interpretation Comments Platelet (test code = Platelet) 267 133-450 [facility] HospitalPagvgpsYPLZIDCJVA9764-29-42 21:43:00 Test Item Value Reference Range Interpretation Comments MPV (test code = MPV) 8.7 7.4-10.4 [place] 059421-03-24 21:43:00 Test Item Value Reference Range Interpretation Comments PT (test code = PT) 12.6 s 12.0-14.7 [place] 059421-03-24 21:43:00 Test Item Value Reference Range Interpretation Comments INR (test code = INR) 0.95 1 0.85-1.17 [place] 059421-03-24 21:43:00 Test Item Value Reference Range Interpretation Comments PTT (test code = PTT) 25.6 s 22.9-35.8 [place] [address]-03-24 21:43:00 Test Item Value Reference Range Interpretation Comments Segs (test code = Segs) 57.8 45.0-75.0 [place] [address]-03-24 21:43:00 Test Item Value Reference Range Interpretation Comments Lymphocytes (test code = Lymphocytes) 29.2 20.0-40.0 [place] 059421-03-24 21:43:00 Test Item Value Reference Range Interpretation Comments Monocytes (test code = Monocytes) 9.7 2.0-12.0 [place] [address]-03-24 21:43:00 Test Item Value Reference Range Interpretation Comments Eosinophils (test code = Eosinophils) 2.2 <=4.0 [place] 059421-03-24 21:43:00 Test Item Value Reference Range Interpretation Comments Basophils (test code = Basophils) 1.1 <=1.0 [place] [address]-03-24 21:43:00 Test Item Value Reference Range Interpretation Comments Neutrophils # (test code = Neutrophils 4.6 1.5-8.1 #) [place] 059421-03-24 21:43:00 Test Item Value Reference Range Interpretation Comments Lymphocytes # (test code = Lymphocytes 2.3 1.0-5.5 #) [place] 059421-03-24 21:43:00 Test Item Value Reference Range Interpretation Comments Monocytes # (test code = Monocytes #) 0.8 <=0.8 [address]03-24 21:43:00 Test Item Value Reference Range Interpretation Comments Eosinophils # (test code = Eosinophils 0.2 <=0.5 #) [place] [address]-03-24 21:43:00 Test Item Value Reference Range Interpretation Comments Basophils # (test code = Basophils #) 0.1 <=0.2 [place] 940311-03-24 21:43:00 Test Item Value Reference Range Interpretation Comments Glucose Lvl (test code = Glucose Lvl) 131 70-99 [place] 940311-03-24 21:43:00 Test Item Value Reference Range Interpretation Comments BUN (test code = BUN) 12 7-22 [place] 940311-03-24 21:43:00 Test Item Value Reference Range Interpretation Comments Creatinine Lvl (test code = Creatinine 0.92 0.50-1.40 Lvl) [place] 940311-03-24 21:43:00 Test Item Value Reference Range Interpretation Comments Sodium Lvl (test code = Sodium Lvl) 139 135-145 [place] 940311-03-24 21:43:00 Test Item Value Reference Range Interpretation Comments Potassium Lvl (test code = Potassium 3.6 3.5-5.1 Lvl) [place] 940311-03-24 21:43:00 Test Item Value Reference Range Interpretation Comments Chloride Lvl (test code = Chloride Lvl) 106 95-109 [place] 940311-03-24 21:43:00 Test Item Value Reference Range Interpretation Comments CO2 (test code = CO2) 26 24-32 [place] 940311-03-24 21:43:00 Test Item Value Reference Range Interpretation Comments Calcium Lvl (test code = Calcium Lvl) 9.7 8.5-10.5 [place] 940311-03-24 21:43:00 Test Item Value Reference Range Interpretation Comments Total Protein (test code = Total 8.3 6.4-8.4 Protein) [place] 940311-03-24 21:43:00 Test Item Value Reference Range Interpretation Comments Albumin Lvl (test code = Albumin Lvl) 4.1 3.5-5.0 [place] 940311-03-24 21:43:00 Test Item Value Reference Range Interpretation Comments ALT (test code = ALT) 38 <=65 [place] 940311-03-24 21:43:00 Test Item Value Reference Range Interpretation Comments AST (test code = AST) 28 <=37 [place] 940311-03-24 21:43:00 Test Item Value Reference Range Interpretation Comments Alk Phos (test code = Alk Phos) 113 39-136 [place] 940311-03-24 21:43:00 Test Item Value Reference Range Interpretation Comments Bili Total (test code = Bili Total) 1.2 0.2-1.3 [place] 940311-03-24 21:43:00 Test Item Value Reference Range Interpretation Comments AGAP (test code = AGAP) 10.6 10.0-20.0 [facility]2021-03-24 21:43:00 Test Item Value Reference Range Interpretation Comments B/C Ratio (test code = B/C Ratio) 13 1 6-25 [place] 940311-03-24 21:43:00 Test Item Value Reference Range Interpretation Comments Globulin (test code = Globulin) 4.2 2.7-4.2 [place] 940311-03-24 21:43:00 Test Item Value Reference Range Interpretation Comments A/G Ratio (test code = A/G Ratio) 1.0 1 0.7-1.6 [place] 940311-03-24 21:43:00 Test Item Value Reference Range Interpretation Comments eGFR (test code = eGFR) 105 [facility] HospitalManghuzZPQZVQGFTT9235-49-46 21:43:00 Test Item Value Reference Range Interpretation Comments WBC (test code = WBC) 8.0 3.7-10.4 [place] 059421-03-24 21:43:00 Test Item Value Reference Range Interpretation Comments RBC (test code = RBC) 4.85 4.70-6.10 [place] 059421-03-24 21:43:00 Test Item Value Reference Range Interpretation Comments Hgb (test code = Hgb) 15.9 14.0-18.0 [place] 059421-03-24 21:43:00 Test Item Value Reference Range Interpretation Comments Hct (test code = Hct) 46.1 42.0-54.0 [place] 059421-03-24 21:43:00 Test Item Value Reference Range Interpretation Comments MCV (test code = MCV) 95.1 80.0-94.0 [place] [address]-03-24 21:43:00 Test Item Value Reference Range Interpretation Comments MCH (test code = MCH) 32.8 pg 27.0-31.0 [place] 059421-03-24 21:43:00 Test Item Value Reference Range Interpretation Comments Platelet (test code = Platelet) 267 133-450 [place] 059421-03-24 21:43:00 Test Item Value Reference Range Interpretation Comments MPV (test code = MPV) 8.7 7.4-10.4 [facility]WB7337[facility] 21:43:00 Test Item Value Reference Range Interpretation Comments PT (test code = PT) 12.6 s 12.0-14.7 [facility]DdztsarOWEVYESCTI4576-54-29 21:43:00 Test Item Value Reference Range Interpretation Comments INR (test code = INR) 0.95 1 0.85-1.17 [facility]QhycjapYHIHGQHBEC9425-10-33 21:43:00 Test Item Value Reference Range Interpretation Comments PTT (test code = PTT) 25.6 s 22.9-35.8 [facility] HospitalHtcysmeLCVJICERZK5969-29-77 21:43:00 Test Item Value Reference Range Interpretation Comments Segs (test code = Segs) 57.8 45.0-75.0 [facility] HospitalOlafickQEYBBISXRK2944-68-87 21:43:00 Test Item Value Reference Range Interpretation Comments Lymphocytes (test code = Lymphocytes) 29.2 20.0-40.0 [facility] HospitalWvilsbrFEDWMEIHVU4325-06-23 21:43:00 Test Item Value Reference Range Interpretation Comments Monocytes (test code = Monocytes) 9.7 2.0-12.0 [facility] coronavirus 2 RNA [Presence] in Respiratory specimen by MAURISIO with probe ygmblxtby5856-06-76 03:04:28 Test Item Value Reference Range Interpretation Comments SARS coronavirus 2 RNA [Presence] in Detected Not-Detected Respiratory specimen by MAURISIO with probe detection (test code = 36621-5) [facility] [id number] 18:17:00 Test Item Value Reference Range Interpretation Comments Troponin-I (test code = Troponin-I) no gt <=0.[address] [facility] [address] CenterC[facility] [id number] 18:17:00 Test Item Value Reference Range Interpretation Comments Total CK (test code = Total CK) 259 12-191 [facility]annCHEM [id number] 18:17:00 Test Item Value Reference Range Interpretation Comments Magnesium Lvl (test code = Magnesium 1.8 1.8-2.4 Lvl) [facility]annCHEM [id number] 18:17:00 Test Item Value Reference Range Interpretation Comments Calcium Lvl (test code = Calcium Lvl) 9.1 8.5-10.5 [facility]annCHEM [id number] 18:17:00 Test Item Value Reference Range Interpretation Comments Albumin Lvl (test code = Albumin Lvl) 4.1 3.5-5.0 [facility]2019-03-31 18:17:00 Test Item Value Reference Range Interpretation Comments CO2 (test code = CO2) 23 24-32 [facility]2019-03-31 18:17:00 Test Item Value Reference Range Interpretation Comments BUN (test code = BUN) 7 7-22 [facility]2019-03-31 18:17:00 Test Item Value Reference Range Interpretation Comments Glucose Lvl (test code = Glucose Lvl) 92 70-99 [facility]2019-03-31 18:17:00 Test Item Value Reference Range Interpretation Comments eGFR (test code = eGFR) 101 [facility]2019-03-31 18:17:00 Test Item Value Reference Range Interpretation Comments Creatinine Lvl (test code = Creatinine 0.96 0.50-1.40 Lvl) [facility]2019-03-31 18:17:00 Test Item Value Reference Range Interpretation Comments ALT (test code = ALT) 39 <=65 [facility]2019-03-31 18:17:00 Test Item Value Reference Range Interpretation Comments AST (test code = AST) 17 <=37 [facility]2019-03-31 18:17:00 Test Item Value Reference Range Interpretation Comments Alk Phos (test code = Alk Phos) 83 39-136 [facility]2019-03-31 18:17:00 Test Item Value Reference Range Interpretation Comments Total Protein (test code = Total 8.0 6.4-8.4 Protein) [facility]2019-03-31 18:17:00 Test Item Value Reference Range Interpretation Comments Bili Total (test code = Bili Total) 0.5 0.2-1.3 [facility]2019-03-31 18:17:00 Test Item Value Reference Range Interpretation Comments Chloride Lvl (test code = Chloride Lvl) 108 95-109 [facility]2019-03-31 18:17:00 Test Item Value Reference Range Interpretation Comments Sodium Lvl (test code = Sodium Lvl) 141 135-145 [facility]2019-03-31 18:17:00 Test Item Value Reference Range Interpretation Comments Potassium Lvl (test code = Potassium 3.7 3.5-5.1 Lvl) [facility]2019-03-31 18:17:00 Test Item Value Reference Range Interpretation Comments AGAP (test code = AGAP) 13.7 10.0-20.0 [facility]2019-03-31 18:17:00 Test Item Value Reference Range Interpretation Comments B/C Ratio (test code = B/C Ratio) 7 1 6-25 [facility]2019-03-31 18:17:00 Test Item Value Reference Range Interpretation Comments Globulin (test code = Globulin) 3.9 2.7-4.2 [facility]2019-03-31 18:17:00 Test Item Value Reference Range Interpretation Comments A/G Ratio (test code = A/G Ratio) 1.1 1 0.7-1.6 [facility] HospitalJqcdtugYHYOFACQXU1859-51-33 18:17:00 Test Item Value Reference Range Interpretation Comments Hct (test code = Hct) 42.0 42.0-54.0 [facility] HospitalSprowmxZCEGMVYVNH4400-09-18 18:17:00 Test Item Value Reference Range Interpretation Comments WBC (test code = WBC) 5.0 3.7-10.4 [facility] HospitalVnidffuHQTUFRBEYC1040-20-39 18:17:00 Test Item Value Reference Range Interpretation Comments RBC (test code = RBC) 4.46 4.70-6.10 [facility] HospitalOhpamoiZLZRGVOZZO5177-01-80 18:17:00 Test Item Value Reference Range Interpretation Comments MCV (test code = MCV) 94.2 80.0-94.0 [facility] HospitalBvcozuyVVYDLEWJKQ1969-08-33 18:17:00 Test Item Value Reference Range Interpretation Comments Hgb (test code = Hgb) 14.3 14.0-18.0 [facility] HospitalHnzjupmQENXTJDMRG1884-66-56 18:17:00 Test Item Value Reference Range Interpretation Comments Platelet (test code = Platelet) 245 133-450 [facility] HospitalXaqxsvlVFGEBJICZF1848-03-27 18:17:00 Test Item Value Reference Range Interpretation Comments RDW (test code = RDW) 13.4 11.5-14.5 [facility] HospitalErfbudkAXIXJHPFDY7115-91-09 18:17:00 Test Item Value Reference Range Interpretation Comments MCH (test code = MCH) 32.0 pg 27.0-31.0 [facility] HospitalQzefngrZQVNDWCQIB5570-98-26 18:17:00 Test Item Value Reference Range Interpretation Comments MCHC (test code = MCHC) 34.0 32.0-36.0 [facility] HospitalTrgkqxgZXLZUKUOVJ6381-18-40 18:17:00 Test Item Value Reference Range Interpretation Comments MPV (test code = MPV) 9.5 7.4-10.4 [facility] HospitalXwrwhxhAFMGSYCOGW4599-77-91 18:17:00 Test Item Value Reference Range Interpretation Comments Basophils # (test code = Basophils #) 0.[address] [facility] HospitalQcbmaooOPPKOBADTJ3289-44-10 18:17:00 Test Item Value Reference Range Interpretation Comments Eosinophils (test code = Eosinophils) 3.[address] [facility] HospitalOpouniiMPYAZDLMET4747-54-58 18:17:00 Test Item Value Reference Range Interpretation Comments Segs (test code = Segs) 45.4 45.0-75.0 [facility] HospitalHptqvgdKCYEALVQSK1845-77-41 18:17:00 Test Item Value Reference Range Interpretation Comments Monocytes (test code = Monocytes) 12.5 2.0-12.0 [facility] HospitalJhzogtgZVFIWOMJMF6963-91-80 18:17:00 Test Item Value Reference Range Interpretation Comments Lymphocytes (test code = Lymphocytes) 37.7 20.0-40.0 [facility] HospitalDvatabsJZTKHMFXBV1232-12-96 18:17:00 Test Item Value Reference Range Interpretation Comments Eosinophils # (test code = Eosinophils 0.2 <=0.5 #) [facility] HospitalCwxtzeqOQMJVYAWXX1960-82-52 18:17:00 Test Item Value Reference Range Interpretation Comments Neutrophils # (test code = Neutrophils 2.3 1.5-8.1 #) [facility] HospitalYifaiscSDCWHDVIOR9283-67-68 18:17:00 Test Item Value Reference Range Interpretation Comments Monocytes # (test code = Monocytes #) 0.[address] <=0[address]8 [facility] HospitalSoewzhhQMKEAUEMXW2398-52-87 18:17:00 Test Item Value Reference Range Interpretation Comments Basophils (test code = Basophils) 1.[address] [facility] HospitalNnmmewuGBGULZFSFV9132-38-78 18:17:00 Test Item Value Reference Range Interpretation Comments Lymphocytes # (test code = Lymphocytes 1.9 1.0-5.5 #) [facility] [id number] 18:17:00 Test Item Value Reference Range Interpretation Comments Troponin-I (test code = Troponin-I) no gt <=0.[address] [facility] CenterCARAC [id number] 18:17:00 Test Item Value Reference Range Interpretation Comments Total CK (test code = Total CK) 259 12-191 [facility] HospitalAutre[facility] [id number] 18:17:00 Test Item Value Reference Range Interpretation Comments Magnesium Lvl (test code = Magnesium 1.8 1.8-2.4 Lvl) [facility] [id number] 18:17:00 Test Item Value Reference Range Interpretation Comments Calcium Lvl (test code = Calcium Lvl) 9.1 8.5-10.5 [facility] [id number] 18:17:00 Test Item Value Reference Range Interpretation Comments Albumin Lvl (test code = Albumin Lvl) 4.1 3.5-5.0 [facility] [place] [id number] 18:17:00 Test Item Value Reference Range Interpretation Comments CO2 (test code = CO2) 23 24-32 [facility] HospitalAut[facility] [id number] 18:17:00 Test Item Value Reference Range Interpretation Comments BUN (test code = BUN) 7 7-22 [facility] [id number] 18:17:00 Test Item Value Reference Range Interpretation Comments Glucose Lvl (test code = Glucose Lvl) 92 70-99 [facility] [id number] 18:17:00 Test Item Value Reference Range Interpretation Comments eGFR (test code = eGFR) 101 [facility] [id number] 18:17:00 Test Item Value Reference Range Interpretation Comments Creatinine Lvl (test code = Creatinine 0.96 0.50-1.40 Lvl) [facility] [id number] 18:17:00 Test Item Value Reference Range Interpretation Comments ALT (test code = ALT) 39 <=65 [facility] [id number] 18:17:00 Test Item Value Reference Range Interpretation Comments AST (test code = AST) 17 <=37 [facility] [id number] 18:17:00 Test Item Value Reference Range Interpretation Comments Alk Phos (test code = Alk Phos) 83 39-136 [facility]2019-03-31 18:17:00 Test Item Value Reference Range Interpretation Comments Total Protein (test code = Total 8.0 6.4-8.4 Protein) [facility]2019-03-31 18:17:00 Test Item Value Reference Range Interpretation Comments Bili Total (test code = Bili Total) 0.5 0.2-1.3 [facility]2019-03-31 18:17:00 Test Item Value Reference Range Interpretation Comments Chloride Lvl (test code = Chloride Lvl) 108 95-109 [facility]2019-03-31 18:17:00 Test Item Value Reference Range Interpretation Comments Sodium Lvl (test code = Sodium Lvl) 141 135-145 [facility]2019-03-31 18:17:00 Test Item Value Reference Range Interpretation Comments Potassium Lvl (test code = Potassium 3.7 3.5-5.1 Lvl) [facility]2019-03-31 18:17:00 Test Item Value Reference Range Interpretation Comments AGAP (test code = AGAP) 13.7 10.0-20.0 [facility]2019-03-31 18:17:00 Test Item Value Reference Range Interpretation Comments B/C Ratio (test code = B/C Ratio) 7 1 6-25 [facility]2019-03-31 18:17:00 Test Item Value Reference Range Interpretation Comments Globulin (test code = Globulin) 3.9 2.7-4.2 [facility]2019-03-31 18:17:00 Test Item Value Reference Range Interpretation Comments A/G Ratio (test code = A/G Ratio) 1.1 1 0.7-1.6 [id number] 18:17:00 Test Item Value Reference Range Interpretation Comments Hct (test code = Hct) 42.0 42.0-54.0 [facility] H[id number] 18:17:00 Test Item Value Reference Range Interpretation Comments WBC (test code = WBC) 5.0 3.7-10.4 [facility] [id number] 18:17:00 Test Item Value Reference Range Interpretation Comments RBC (test code = RBC) 4.46 4.70-6.10 [address]03-31 18:17:00 Test Item Value Reference Range Interpretation Comments MCV (test code = MCV) 94.2 80.0-94.0 [facility] [id number] 18:17:00 Test Item Value Reference Range Interpretation Comments Hgb (test code = Hgb) 14.3 14.0-18.0 [facility] [id number] 18:17:00 Test Item Value Reference Range Interpretation Comments Platelet (test code = Platelet) 245 133-450 [facility] [id number] 18:17:00 Test Item Value Reference Range Interpretation Comments RDW (test code = RDW) 13.4 11.5-14.5 [facility] H[id number] 18:17:00 Test Item Value Reference Range Interpretation Comments MCH (test code = MCH) 32.0 pg 27.0-31.0 [facility] H[id number] 18:17:00 Test Item Value Reference Range Interpretation Comments MCHC (test code = MCHC) 34.0 32.0-36.0 [facility] H[id number] 18:17:00 Test Item Value Reference Range Interpretation Comments MPV (test code = MPV) 9.5 7.4-10.4 [facility] H[id number] 18:17:00 Test Item Value Reference Range Interpretation Comments Basophils # (test code = Basophils #) 0.[address] <=0[address]2 [facility] [id number] 18:17:00 Test Item Value Reference Range Interpretation Comments Eosinophils (test code = Eosinophils) 3.[address] [facility] H[id number] 18:17:00 Test Item Value Reference Range Interpretation Comments Segs (test code = Segs) 45.4 45.0-75.0 [facility] [id number] 18:17:00 Test Item Value Reference Range Interpretation Comments Monocytes (test code = Monocytes) 12.5 2.0-12.0 [facility] H[id number] 18:17:00 Test Item Value Reference Range Interpretation Comments Lymphocytes (test code = Lymphocytes) 37.7 20.0-40.0 [facility] H[id number] 18:17:00 Test Item Value Reference Range Interpretation Comments Eosinophils # (test code = Eosinophils 0.2 <=0.5 #) [facility] [id number] 18:17:00 Test Item Value Reference Range Interpretation Comments Neutrophils # (test code = Neutrophils 2.3 1.5-8.1 #) [facility] [id number] 18:17:00 Test Item Value Reference Range Interpretation Comments Monocytes # (test code = Monocytes #) 0.[address] <=[address] [facility] H[id number] 18:17:00 Test Item Value Reference Range Interpretation Comments Basophils (test code = Basophils) 1.[address] [facility] [id number] 18:17:00 Test Item Value Reference Range Interpretation Comments Lymphocytes # (test code = Lymphocytes 1.9 1.0-5.5 #) [facility]
[2023-09-08 08:54] LABS: Absolute Lymphocytes (CBC) 2.1 K/uL (0.7-4.9); Hematocrit 42.9 % (39.6-49.0); Lymphocytes % 26.4 % (15.3-44.8); MCV 92.8 fL (80-100); MPV 8.6 fL (7.6-11.3); Platelets 268 thou/uL (152-406); RBC Red Blood Cell Count 4.63 M/uL (4.33-5.43)
[2023-09-08 09:06] LABS: Albumin 4.1 g/dL (3.4-5.0); Potassium 3.4 mEq/L (3.5-5.1)
--- NOTE | 2023-09-08 09:16 | RAD REPORT ---
EXAM DESCRIPTION: CT - Abdomen Pelvis W Contrast - 09/08/2023 8:58 am CLINICAL HISTORY: Abdominal pain COMPARISON: none. TECHNIQUE: Computed axial tomography of the abdomen pelvis was obtained. 100 cc Isovue-300 was admin istered intravenously. Oral contrast was not requested which limits evaluation of bowel and appendix All CT scans are performed using dose optimization technique as appropriate and may include automated exposure control or mA/KV adjustment according to patient size. FINDINGS: The liver, spleen, pancreas, adrenal and kidneys appear unremarkable. There is no evidence of diverticulitis. Normal appendix appeared Mild thickening rectal wall IMPRESSION: Mild thickening rectal wall may be secondary to incomplete distention or pathology such as inflammation
--- NOTE | 2023-09-08 09:27 | EDPHYS ---
Physician Documentation [facility] Name: Derick Cherry Age: 43 yrs Sex: Male : 1980 Arrival Date: 09/08/2023 Time: 08:15 Bed 8 Private MD: ED Physician Trav Hawk HPI: 09/08 08:56 This 43 yrs old Male presents to ER via Ambulatory with complaints of Bloody Stools, sb4 Abdominal Pain. 08:57 The patient presents to the emergency department with bleeding from the rectum/anus, sb4 that is moderate. Onset: The symptoms/episode began/occurred 1 week(s) ago. Context: the patient has no known special context relating to the rectal area complaint(s). The patient has been recently seen at the [facility] Emergency Department, this week, for similar complaints. Patient reports rectal bleeding for about a week now. He states that he does not have any pain in his rectum or feel like he is constipated or straining. He does states that he goes to the bathroom and notices a lot of blood in the toilet. He also states that he is experiencing intermittent right lower quadrant and left lower quadrant pain. He denies any diarrhea, fever, chills, nausea, vomiting. He was seen here 2 days ago but left before receiving a CT scan. Historical: - Allergies: 08:19 Codeine; iw - Home Meds: 08:19 None [Active]; iw - PMHx: 08:19 None; iw - PSHx: 08:19 None; iw - Immunization history:: Client reports having NOT received the Covid vaccine. - Social history:: Smoking status: . ROS: 08:57 Constitutional: Negative for fever, chills, and weight loss, sb4 08:57 Abdomen/GI: Positive for abdominal pain, rectal bleeding, 08:57 All other systems are negative, Exam: 08:57 Constitutional: This is a well developed, well nourished patient who is awake, alert, sb4 and in no acute distress. Head/Face: Normocephalic, atraumatic. Eyes: Extra-ocular motions intact. Periorbital areas with no swelling, redness, or edema. ENT: Mucous membranes moist. Cardiovascular: Regular rate and rhythm with a normal S1 and S2. Respiratory: Lungs have equal breath sounds bilaterally, clear to auscultation and percussion. No rales, rhonchi or wheezes noted. No increased work of breathing, no retractions or nasal flaring. Abdomen/GI: Soft, non-tender, no distension. Skin: Warm, dry with normal turgor. Normal color with no rashes, no lesions, and no evidence of cellulitis. MS/ Extremity: Pulses equal, no cyanosis. Neurovascular intact. Full, normal range of motion. Neuro: Awake and alert, GCS 15, oriented to person, place, time, and situation. Motor strength 5/5 in all extremities. Sensory grossly intact. Vital Signs: 08:19 BP 134 / 73; Pulse 93; Resp 16; Temp 98.1; Pulse Ox 98% on R/A; Weight 95.71 kg; Height iw 6 ft. 3 in. ; Pain 810; 09:19 BP 128 / 75; Pulse 90; Resp 18; Pulse Ox 99% on R/A; mb9 08:19 Body Mass Index 26.37 (95.71 kg, 190.5 cm) iw 08:19 Pain Scale: Adult iw MDM: 08:34 Patient medically screened. sb4 08:57 Differential diagnosis: Internal hemorrhoids, diverticulitis, diverticulosis, GI bleed. sb4 09:24 Data reviewed: vital signs, nurses notes, lab test result(s), radiologic studies, and sb4 as a result, I will discharge patient. Counseling: I had a detailed discussion with the patient and/or guardian regarding the historical points, exam findings, and any diagnostic results supporting the discharge/admit diagnosis, lab results, radiology results, the need for outpatient follow up, a vamp liner, to return to the emergency department if symptoms worsen or persist or if there are any questions or concerns that arise at home. 09/08 08:40 Order name: CBC with Diff; Complete Time: 08:56 sb4 09/08 08:40 Order name: CMP; Complete Time: 09:08 sb4 09/08 08:40 Order name: Lipase; Complete Time: 09:08 sb4 09/08 08:40 Order name: CT Abd/Pelvis - IV Contrast Only; Complete Time: 09:20 sb4 09/08 08:40 Order name: IV Saline Lock; Complete Time: 08:42 sb4 09/08 08:40 Order name: Labs collected and sent; Complete Time: 08:42 sb4 Administered Medications: No medications were administered Disposition: 09:33 Co-signature as Attending Physician, Trav Hawk MD I reviewed the patient's care rn provided by the Advanced Practice Provider and agree with the diagnosis and treatment plan. Disposition Summary: 09/08/23 09:26 Discharge Ordered Notes: Location: Home sb4 Problem: an ongoing problem sb4 Symptoms: are unchanged sb4 Condition: Stable sb4 Diagnosis - Rectal inflammation with bleeding sb4 Followup: sb4 - With: Devonte Palma MD - When: As needed - Reason: Further diagnostic work-up, Re-evaluation by your physician Discharge Instructions: - Discharge Summary Sheet sb4 - Rectal Bleeding, [id number] sb4 Forms: - Work release form sb4 - Medication Reconciliation Form sb4 - Thank You Letter sb4 - Antibiotic Education sb4 - Prescription Opioid Use sb4 - Patient Portal Instructions sb4 - Leadership Thank You Letter sb4 Prescriptions: - Prednisone 20 mg Oral Tablet - take 1 tablet ORAL route every 12 hours for 5 days; 10 tablet; Refills: 0, sb4 Product Selection Permitted Signatures: Dispatcher [employer] Alondra Aguirre, RN Trav Miller MD MD rn Brown, Sophia, PA-C PA-C sb4
--- NOTE | 2023-09-08 09:27 | ER ---
Nurse's Notes [facility] Name: Derick Cherry Age: 43 yrs Sex: Male : 1980 Arrival Date: 09/08/2023 Time: 08:15 Bed 8 Private MD: Diagnosis: Rectal inflammation with bleeding Presentation: 09/08 08:19 Chief complaint: Patient states: blood in stool X 2 weeks, bright red blood, also has iw cramps. Coronavirus screen: At this time, the client does not indicate any symptoms associated with coronavirus-19. Ebola Screen: Patient negative for fever greater than or equal to 101.5 degrees Fahrenheit, and additional compatible Ebola Virus Disease symptoms Patient denies exposure to infectious person. Patient denies travel to an Ebola-affected area in the 21 days before illness onset. No symptoms or risks identified at this time. Risk Assessment: Do you want to hurt yourself or someone else? Patient reports no desire to harm self or others. 08:19 Method Of Arrival: Ambulatory iw 08:19 Acuity: SHAN 3 iw 08:19 Initial Sepsis Screen: Does the patient meet any 2 criteria? No. Patient's initial iw sepsis screen is negative. Does the patient have a suspected source of infection? No. Patient's initial sepsis screen is negative. Onset of symptoms was August 25, 2023. Historical: - Allergies: 08:19 Codeine; iw - Home Meds: 08:19 None [Active]; iw - PMHx: 08:19 None; iw - PSHx: 08:19 None; iw - Immunization history:: Client reports having NOT received the Covid vaccine. - Social history:: Smoking status: . Screenin:43 [facility] ED Fall Risk Assessment (Adult) History of falling in the last 3 months, mb9 including since admission No falls in past 3 months (0 pts) Confusion or Disorientation No (0 pts) Intoxicated or Sedated No (0 pts) Impaired Gait No (0 pts) Mobility Assist Device Used No (0 pt) Altered Elimination No (0 pt) Score/Fall Risk Level 0 - 2 = Low Risk Oriented to surroundings, Maintained a safe environment, Educated pt \T\ family on fall prevention, incl call for assistance when getting out of bed. Abuse screen: Denies threats or abuse. Nutritional screening: No deficits noted. Tuberculosis screening: No symptoms or risk factors identified. Assessment: 08:39 General: Appears in no apparent distress. Behavior is calm, cooperative. Pain: mb9 Complains of pain in abdomen Pain radiates to RLQ and LLQ Pain currently is 7 out of 10 on a pain scale. Quality of pain is described as throbbing, Pain began 1 day ago. Is intermittent. Neuro: Koenig Agitation-Sedation Scale (RASS): 0 - Alert and Calm Level of Consciousness is awake, alert, obeys commands, Oriented to person, place, time, situation, Appropriate for age. Cardiovascular: Heart tones S1 S2 present Patient's skin is warm and dry. Respiratory: Airway is patent Respiratory effort is even, unlabored, Respiratory pattern is regular, symmetrical, Breath sounds are clear bilaterally. GI: Abdomen is round non-distended, Bowel sounds hyperactive in right upper quadrant, left upper quadrant, right lower quadrant and left lower quadrant Abd is soft Abdomen is tender to palpation in right lower quadrant and left lower quadrant Reports bloody stool, since 2 weeks ago that is bright red. : No signs and/or symptoms were reported regarding the genitourinary system. EENT: No signs and/or symptoms were reported regarding the EENT system. Derm: Skin is pink, warm \T\ dry. Musculoskeletal: Range of motion: intact in all extremities. 08:56 Reassessment: pt taken to CT via wheelchair. mb9 09:32 Reassessment: Patient and/or family updated on plan of care and expected duration. Pain mb9 level reassessed. Patient is alert, oriented x 3, equal unlabored respirations, skin warm/dry/pink. Patient states feeling better. Patient states symptoms have improved. Vital Signs: 08:19 BP 134 / 73; Pulse 93; Resp 16; Temp 98.1; Pulse Ox 98% on R/A; Weight 95.71 kg; Height iw 6 ft. 3 in. ; Pain 8/10; 09:19 BP 128 / 75; Pulse 90; Resp 18; Pulse Ox 99% on R/A; mb9 08:19 Body Mass Index 26.37 (95.71 kg, 190.5 cm) iw 08:19 Pain Scale: Adult iw ED Course: 08:16 Patient arrived in ED. rg4 08:17 Oriana Narvaez PA-C [facility]. sb4 08:17 Trav Hawk MD is Attending Physician. sb4 08:19 Triage completed. iw 08:20 Arm band placed on. iw 08:21 Nadiya Waddell, RN is Primary Nurse. mb9 08:39 Inserted saline lock: 20 gauge in right antecubital area, using aseptic technique. mb9 Blood collected. 08:41 Placed in gown. Bed in low position. Call light in reach. Side rails up X 1. Client mb9 placed on continuous cardiac and pulse oximetry monitoring. NIBP monitoring applied. 08:42 No provider procedures requiring assistance completed. mb9 08:42 CBC with Diff Sent. mb9 08:42 CMP Sent. mb9 08:42 Lipase Sent. mb9 09:00 CT Abd/Pelvis - IV Contrast Only In Process Unspecified. EDMS 09:24 Devonte Palma MD is Referral Physician. sb4 09:33 IV discontinued, intact, bleeding controlled, No redness/swelling at site. Pressure mb9 dressing applied. Administered Medications: No medications were administered Medication: 08:56 VIS not applicable for this client. mb9 Outcome: 09:26 Discharge ordered by . sb4 09:33 Discharged to home ambulatory, mb9 09:33 Condition: stable 09:33 Discharge instructions given to patient, Instructed on discharge instructions, follow up and referral plans. Demonstrated understanding of instructions, follow-up care, medications, Prescriptions given X 1, 09:33 Patient left the ED. mb9 Signatures: Dispatcher [employer] EDAR Alondra Mendoza RN RN iw Shira Jacinto rg4 Oriana Narvaez, PA-C PA-C sb4 Nadiya Waddell, RN RN mb9 Corrections: (The following items were deleted from the chart) 08:20 08:19 Pulse 93bpm; Resp 16bpm; Pulse Ox 98% RA; Temp 98.1F; 95.71 kg; Height 6 ft. 3 iw in.; BMI: 26.3; iw 08:21 08:19 Pulse 93bpm; Resp 16bpm; Pulse Ox 98% RA; Temp 98.1F; 95.71 kg; Height 6 ft. 3 iw in.; BMI: 26.3; Pain 8/10, Adult; iw
[2023-09-08 09:49] VITALS: TEMP 98.1
[2023-09-08 10:10] VITALS: BP 128/75; O2SAT 99
== END 2023-09-08 09:33 | disposition home or self-care (01) ==
LOC: ER 08:15
DX: K62.5 Hemorrhage of anus and rectum (principal); K62.89 Other specified diseases of anus and rectum; R10.30 Lower abdominal pain, unspecified; Z88.5 Allergy status to narcotic agent
CPT/HCPCS: 85025; 36415; 83690; 80053; 74177; 99284; Q9967